=== PATIENT | male | born 1970 | race Caucasian/White ===

== ENCOUNTER 2025-03-12 12:15 | Outpatient (CLI) | payer OTHER, SELFPAY ==
--- NOTE | ~2025-03-12 | PE_ITS ---
EXAMINATION: PET_PETPSMAST_PT DATE: 03/12/2025 15:32 INDICATION: Gastric cancer TECHNIQUE: 5.069 mCi of Illucix Ga-68([id number]) was administered i.v. Low dose computed ethan graphy (CT) images were acquired from the base of the brain to the base of the brain to the proximal thighs for attenuation correction and anatomic localization. Positron emission tomography (PET) image s were acquired in the same distribution beginning 88 minutes after injection. Images including fused PET/CT images were reconstructed in axial, coronal, and sagittal planes. Automated exposure control technique was employed. The dose-length product was 1242.86mGy-cm. COMPARISON: None FINDINGS: Head/neck: Typical pattern of symmetric physiologic increased activity in the lacrimal, parotid and submandibula r glands as well as along the mucosa of the nasal and oral cavities. No pathologically enlarged cervi akira lymphadenopathy or suspicious foci of increased uptake in the visualized head or neck. Chest: Mild emphysema in the upper lungs. Calcified right middle lobe nodule along with calcified right marina r lymph nodes consistent with old granulomatous disease. No concerning pulmonary nodules, pneumonia, pulmonary edema or pleural effusion. Heart size is normal. Small amount of atherosclerotic coronary a rtery calcific location. No pericardial effusion. Thoracic aorta is normal in caliber. No pathologica lly enlarged or PSMA avid thoracic lymphadenopathy. Abdomen/pelvis/proximal thighs: Physiologic renal accumulation and excretion of activity in the kidneys, bladder and along portions o f ureters. Mild prostatomegaly measuring 4.2 x 3.9 cm. There is a small focus of increased uptake sli ghtly to the right of midline in the central prostate suspicious for primary prostate cancer. Assessm ent of the degree of uptake is limited by the adjacent intense excreted activity in the bladder. Norm al degree and slightly heterogenous pattern of increased uptake throughout the liver and spleen witho ut radiologic correlate or dominant PSMA avid lesion.. There are a few small splenic calcifications c onsistent with old granulomatous disease. The gallbladder, pancreas and bilateral adrenal glands are normal. Moderate uptake scattered throughout the bowels with typical duodenal and proximal jejunal pr edominance and without radiologic correlate, also likely physiologic. Mild sigmoid diverticulosis wit hout adjacent from trace stranding to suggest diverticulitis. No other abnormal foci of increased upt clemencia or pathologically enlarged lymphadenopathy in the abdomen, pelvis or proximal thighs. Musculoskeletal: No suspicious lytic, blastic or abnormally PSMA avid bone lesions. IMPRESSION: 1. Small focus of uptake slightly to the right of midline in the central prostate likely representing the site of reported primary prostate cancer. No lesion suspicious for metastatic disease. Reviewed, dictated and finalized at location B. IMPRESSION: 1. Small focus of uptake slightly to the right of midline in the central prosta te likely representing the site of reported primary prostate cancer. No lesion suspicious for metastatic disease.
--- OUTSIDE RECORDS SUMMARY | 2025-03-12 13:48 | XMS_ITS | Clinical Summary ---
Author Organization [facility] Address [address] [place] [address] Care Team Providers Care Valet Runner Name Role Phone Lucy Trinidad MD Primary Care Provider Allergies No known active allergies Medications metFORMIN (GLUCOPHAGE) 500 MG tablet Take 1 tablet (500 mg total) by mouth daily with breakfast. 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 1 kit 06/09/2023 Active Insulin Glargine, 1 Unit Dial, 300 UNIT/ML Solution Pen-injector Inject 10 Units into the skin every evening. 1.5 mL 6 06/09/2023 Active atorvastatin (LIPITOR) 40 MG tablet Take 1 tablet (40 mg total) by mouth nightly at bedtime. 30 tablet 3 06/09/2023 Active Active Problems Problem Noted Date Diagnosed Date Diabetes ([facility]) 06/08/2023 Social History Tobacco Use Types Packs/Day Years Used Date Smoking Tobacco: Every Day Cigarettes 0.5 35 Smokeless Tobacco: Current Chew Tobacco Cessation:Ready to Q uit: No; Counseling Given: Yes Alcohol Use Standard Drinks/Week Comments Never 0 (1 standard drink = 0.6 oz pur e alcohol) Humiliation, Afraid, Rape, and Kick questionnair e Answer Date Recorded Within the last year, have y ou been afraid of your partner or ex-partner? No 06/08/2023 Within the last year, have y ou been humiliated or emotionally abused in other ways by your partner or ex-partner? No Within the last year, have y ou been kicked, hit, slapped, or otherwise physically hurt by your partner or ex-partner? No 06/08/2023 Within the last year, have y ou been raped or forced to have any kind of sexual activity by your partner or ex-partner? No 06/08/2023 Social Connection and Isolat ion Panel [NHANES] Answer Date Recorded In a typical week, how many times do you talk on the phone with family, friends, or neighbors? More than three times a week 06/08/2023 How often do you get togethe r with friends or relatives? Twice a week 06/08/2023 How often do you attend chur or quaker services? 1 to 4 times per year 06/08/2023 Do you belong to any clubs o r organizations such as holiness groups, unions, fraternal or athletic groups, or school groups? No 06/08/2023 How often do you attend meet ings of the clubs or organizations you belong to? Never 06/08/2023 Are you , , di vorced, , never , or living with a partner? 06/08/2023 AUDIT-C Answer Date Recorded Q1: How often do you have a drink containing alcohol? Never 06/08/2023 Q2: How many drinks containi ng alcohol do you have on a typical day when you are drinking? Patient does not drink Q3: How often do you have si x or more drinks on one occasion? Never 06/08/2023 Overall Financial Resource Strain (CARDIA) Answe r Date Recorded How hard is it for you to pa y for the very basics like food, housing, medical care, and heating? Not very hard 06/08/2023 [facility] Occupat ional Health - Occupational Stress Questionnaire Answer Date Recorded Do you feel stress - tense, restless, nervous, or anxious, or unable to sleep at night because your mind is troubled all the time - these days? Not at all 06/08/2023 Hunger Vital Sign Answer Date Recorded Within the past 12 months, y ou worried that your food would run out before you got the money to buy more. Never true 06/08/20 Within the past 12 months, t he food you bought just didn't last and you didn't have money to get more. Never true 06/08/2023 PRAPARE - Transportation Answer Date Re corded In the past 12 months, has l ack of transportation kept you from medical appointments or from getting medications? No 05/26 In the past 12 months, has l ack of transportation kept you from meetings, work, or from getting things needed for daily living? No 06/08/2023 Housing Stability Vital Sign Answer Valerio e Recorded In the last 12 months, was t here a time when you were not able to pay the mortgage or rent on time? No 06/08/2023 In the last 12 months, how many places have you lived? 1 06/08/2023 In the last 12 months, was t here a time when you did not have a steady place to sleep or slept in a usp (including now)? No 06/08/2023 Education Answer Date Recorded What is the highest level of school you have completed or the highest degree you have received? Associate degree: occupational, technical, or vocational program 06/08/2023 Sex and Gender Information Value Date Recorded Sex Assigned at Not on file Legal Sex Male 8:07 AM CDT Gender Identity Not on file Sexual Orientation Not on file Last Filed Vital Signs Vital Sign Reading Time Taken Comments Blood Pressure 121/78 11/28/2023 10:01 AM FIELD HUMAN RESOURCES MANAGER Pulse 73 11/28/2023 10:01 AM FIELD HUMAN RESOURCES MANAGER Temperature 36 C (96.8 F) 11/28/2023 10:01 AM FIELD HUMAN RESOURCES MANAGER Respiratory Rate 20 11/28/2023 10:01 AM FIELD HUMAN RESOURCES MANAGER Oxygen Saturation 98% 11/28/2023 10:01 AM FIELD HUMAN RESOURCES MANAGER Inhaled Oxygen Concentration - - Weight 93.9 kg (207 lb) 11/28/2023 10:01 AM FIELD HUMAN RESOURCES MANAGER Height 175.3 cm (5' 9) 11/28/2023 10:01 AM FIELD HUMAN RESOURCES MANAGER Body Mass Index 30.57 11/28/2023 10:01 AM FIELD HUMAN RESOURCES MANAGER Plan of Treatment Health Maintenance Due Date Last Done Comments Colorectal Cancer Screening Colonoscopy (10 Years) 1971 Kidney Health Evaluation 1971 Lipid Panel 1971 Annual Physical 1974 Diabetes: Retinopathy Eye Exam 1989 Hepatitis C 1989 Hepatitis B Vaccines (1 of 3 - 19+ 3-dose series) 1990 Pneumococcal Vaccine: 50+ Years (1 of 2 - PCV) 1990 Zoster Vaccines (1 of 2) 2021 COVID-19 Vaccine (3 - 2023-2 5 season) 2024 05/22/2021, 05/01/2021 PHQ-2 (Physician [place]) 09/25/2024 Hemoglobin A1C 05/31/2025 11/28/2024, 06/09/2023 DTaP, Tdap and Td Vaccines ( 3 - Td or Tdap) 11/25/2025 11/26/2015, 04/19/2000, 05/17/1990 Meningococcal B Vaccine Aged Out No l onger eligible based on patient's age to complete this topic Meningococcal Vaccine Aged Out No branden [place] eligible based on patient's age to complete this topic RSV Immunizations Under 20 Months Aged Out No longer eligible b ased on patient's age to complete this topic Procedures Procedure Name Priority Date/Time Associated Diagnosis Comments HEMOGLOBIN, GLYCOSYLATED Routine 11/28/2024 2:59 PM FIELD HUMAN RESOURCES MANAGER from Last 3 Months or Most Recently Relevant to Health Maintenance Results * (ABNORMAL) HEMOGLOBIN, GLYCOSYLATED (11/28/2024 2:59 PM FIELD HUMAN RESOURCES MANAGER) HGB A1C 5.9(H) <5.7 % 11/28/2024 4:22 PM FIELD HUMAN RESOURCES MANAGER [facility] Comment: INCREASED RISK OF DIABETES <5.7% NON-DIABETES 5.7-6.4% INCREASED RISK FOR FUTURE DIABETES > OR = 6.5 CONSISTENT WITH DIABETES STANDARDS OF MEDICAL CARE IN DIABETES-2010 DIABETES CARE, 33(SUPP 1): S1-S61,2010 ESTIMATED AVG GLUCOSE 123 mg/dL 11/28/2024 4:22 PM FIELD HUMAN RESOURCES MANAGER [facility] 11/28/2024 2:59 PM FIELD HUMAN RESOURCES MANAGER Jai Moeller MD LABORATORY Final Result [facility] [address] [place] [address], from Last 3 Months or Most Recently Relevant to Health Maintenance Insurance [employer] Care Teams Valet Runner Relationship Specialty Start Date End Date Lucy Trinidad MD [address] [place] [address] PCP - General FAMILY PRACTICE 03/13/19
--- OUTSIDE RECORDS SUMMARY | 2025-03-12 13:48 | XMS_ITS | Patient Health Record ---
Author Organization [facility] Address [address] [address] Care Team Providers Care Associate Director Regulatory Affairs Name Role Phone Ruben Cervantes Primary Care Provider Ruben Cervantes Unavailable Unavailable Reason For Referral No Information Plan Of Treatment No Information
--- OUTSIDE RECORDS SUMMARY | 2025-03-12 13:48 | XMS_ITS ---
Author Organization [facility] Address [address] [address] Care Team Providers Care Nursing Home Social Worker Name Role Phone Ruben Cervantes Primary Care Provider Ruben Cervantes Unavailable Unavailable Encounters Encounter Location Date Provider Diagnosis [place] [address] [place] [address] 06/28/2024 Ruben Cervantes Plan Of Treatment No Information Progress Notes * LAURYN SORENSONNATAOB:1970 (54 yo M)Acc No.[id number]:06/28/2024 Patient: IRASEMA MCKEON Provider: Halima Cervantes MD :1970 A ge:53 Y S ex:Male Date:06/28/2024 Address:[address] [place], [place] [id number] Subjective: * Chief Complaints: * Objective: * Vitals: Assessment: Plan: * Treatment: * Billing Information: * Visit Code: * Procedure Codes: * Electronic signature of Jasbir Cervantes MD on 03/12/2025 at 01:48 PM CDT Sign off status: Pending * Provider: Halima Cervantes MD Date: Generated for Tavo merrill/Selwyn/Kelly on: 0 03/12/2025 01:48 PM CDT
== END 2025-03-12 12:16 | disposition home or self-care (01) ==
PROVIDERS: PCP Nurse Practitioner Family; Visit Provider Urology
DX: C61 Malignant neoplasm of prostate (principal)
CPT/HCPCS: 78815; A9596

== ENCOUNTER 2025-04-17 11:30 | Outpatient (CLI) | payer OTHER, SELFPAY ==
--- OUTSIDE RECORDS SUMMARY | 2025-04-17 11:43 | XMS_ITS | Patient Health Record ---
Author Organization [facility] In[facility] Address [address] [place] [address] Care Team Providers Care Embedded Software Manager Name Role Phone Destiny Mosqueda Primary Care Provider [phone] Jesús Cardenas Unavailable [phone] Dr. David Brown Unavailable [phone] Migration, Provider Unavailable Unavailable Allergies No Known Allergies Results Component Value Reference Range Flag Notes CBC w/ Diff Reviewed date:07/19/2024 12:00:00 AM Interpretation: Performing Lab: Notes/Report: Baso Absolute 0.1 x10*3/mcL Basophil Auto 0.7 % Eos Absolute 0.3 x10*3/mcL Eosinophil Auto 3.2 % Hct 41.1 % Hgb 14.3 g/dL Lymph Absolute 3.1 x10*3/mcL Lymph Auto 35.1 % MCH 30.9 pg MCHC 34.9 g/dL MCV 88.5 fL [place] Absolute 0.6 x10*3/mcL [place] Auto 6.6 % MPV 7.3 fL Neutro Absolute 4.8 x10*3/mcL Neutro Auto 54.4 % Platelets 354 K/mcL RBC 4.65 x10*6/mcL RDW 13.2 % WBC 8.8 K/mcL Comprehensive Metabolic Pane l Reviewed date:07/19/2024 12:00:00 AM Interpretation: Performing Lab: Notes/Report: Albumin Lvl 4.6 g/dL Albumin/Globulin Ratio 2.1 Alk Phos 61 unit/L ALT 20 unit/L ANION GAP 7.5 mmol/L AST 18 unit/L Bilirubin Total 0.4 mg/dL BUN 15 mg/dL Calcium Lvl 9.7 mg/dL Chloride Lvl 106 mmol/L CO2 26 mmol/L Creatinine Lvl 0.87 mg/dL eGFR CKD-EPI >90 mL/min/1.73 m2 Glucose Lvl 90 mg/dL Potassium Lvl 4.3 mmol/L Protein Total 6.8 g/dL Sodium Lvl 139 mmol/L Hemoglobin A1c {Glycosylated } Reviewed date:07/19/2024 12:00:00 AM Interpretation: Performing Lab: Notes/Report: eAvg Glucose 117 mg/dL Hemoglobin A1c 5.7 % Lipid Panel {Chol, Trig, HDL , LDL} Reviewed date:07/19/2024 12:00:00 AM Interpretation: Performing Lab: Notes/Report: Chol/HDL 5 Cholesterol Total 149 mg/dL Coronary Risk 19 % HDL 29 mg/dL LDL 49 mg/dL NON HDL CHOLESTEROL 120 mg/dL Triglycerides 356 mg/dL Thyroid Stimulating Hormone Reviewed date:07/19/2024 12:00:00 AM Interpretation: Performing Lab: Notes/Report: TSH 0.92 mcIU/mL Uric Acid Reviewed date:07/19/2024 12:00:00 AM Interpretation: Performing Lab: Notes/Report: Uric Acid 7.3 mg/dL PSA Annual Screening Reviewed date:01/29/2025 09:55:09 PM Interpretation: Performing Lab: Notes/Report: Test Performed by: [place] [address] Dental Assistant Instructor: Vini Falcon DO PSA Total 6.14 0.00-4.00 ng/mL H Thyroid Stimulating Hormone Reviewed date:01/29/2025 09:55:09 PM Interpretation: Performing Lab: Notes/Report: Test Performed by: [place] [address] Dental Assistant Instructor: Vini Falcon DO TSH 0.82 0.45-5.33 mcIU/mL Magnesium Reviewed date:01/29/2025 09:55:09 PM Interpretation: Performing Lab: Notes/Report: Test Performed by: [place] [address] Dental Assistant Instructor: Vini Falcon DO Magnesium Lvl 1.9 1.6-2.4 mg/dL Lipid Panel {Chol, Trig, HDL , LDL} Reviewed date:01/29/2025 09:55:09 PM Interpretation: Performing Lab: Notes/Report: Test Performed by: [address] [place] [address] Dental Assistant Instructor: Vini Falcon DO Cholesterol Total 125 <=199 mg/dL Triglycerides 429 0-149 mg/dL H Triglyceride Reference Ranges: <150 mg/dL Normal 150 - 199 mg/dL Borderline High 200 - 499 mg/dL High >=500 mg/dL Very High LDL N/A TRIG>400 <=100 mg/dL LDL Optimal: <100 Near or above optimal: 100-129 Borderline high: 130-159 High: 160-189 Very high: >=190 Coronary heart disease risk factors should be considered when determining LDL goals. Please refer to ATPIII guidelines for further information. If LDL is not calculated, please call the lab to add on the direct LDL methodology, if desired. HDL 24 23-92 mg/dL Non HDL Cholesterol 101 <=130 mg/dL Chol/HDL 5 0-5 Comprehensive Metabolic Pane l Reviewed date:01/29/2025 09:55:09 PM Interpretation: Performing Lab: Notes/Report: Test Performed by: [place] [address] Dental Assistant Instructor: Vini Falcon DO Glucose Lvl 94 74-109 mg/dL ADA risk stratification for diabetes <100 mg/dL = Normal 100-125 mg/dL = Increased risk for future diabetes >=126 mg/dL = Diabetes, if on more than one testing occasion BUN 13 7-25 mg/dL Creatinine Lvl 0.93 0.70-1.30 mg/dL eGFR CKD-EPI >90 >=90 mL/min/1.73 m2 The CKD-EPI equation is validated in individuals 18 years of age and older. It is less accurate in patients with extremes of muscle mass, restriction of dietary protein, ingestion of creatine, extra-renal metabolism of creatinine, or treatment with medications that affect renal tubular creatinine secretion. GFR Categories in Chronic Kidney Disease (CKD) GFR GFR (mL/min/1.73 Category: square meters): Interpretation: G1 90 or greater Normal or high* G2 60-89 Mild decrease* G3a 45-59 Mild to moderate decrease G3b 30-44 Moderate to severe decrease G4 15-29 Severe decrease G5 14 or less Kidney failure *In the absence of evidence of kidney damage, neither GFR category G1 nor G2 fulfill the criteria for CKD (Kidney Int Suppl 2013;3:1-150) Calcium Lvl 8.9 8.6-10.3 mg/dL Sodium Lvl 138 136-145 mmol/L Potassium Lvl 4.1 3.5-5.1 mmol/L Chloride Lvl 106 98-107 mmol/L CO2 25 21-31 mmol/L Anion Gap 7.0 <=16.0 mmol/L Alk Phos 66 34-104 unit/L Bilirubin Total 0.3 0.3-1.0 mg/dL Albumin Lvl 4.4 3.5-5.2 g/dL Protein Total 6.6 6.4-8.9 g/dL Albumin/Globulin Ratio 2.0 1.1-2.5 ALT 35 7-52 unit/L AST 24 13-39 unit/L CBC w Auto Diff Reviewed date:01/29/2025 09:55:09 PM Interpretation: Performing Lab: Notes/Report: Test Performed by: [place] [address] Dental Assistant Instructor: Vini Falcon DO WBC 5.1 4.0-11.7 K/mcL RBC 4.64 4.28-5.56 x10*6/mcL Hgb 14.3 13.0-17.0 g/dL Hct 40.8 38.1-48.9 % MCV 88.0 83.4-98.1 fL MCH 30.9 27.0-34.2 pg MCHC 35.1 31.8-35.3 g/dL RDW 13.3 12.0-16.4 % Platelets 300 149-393 K/mcL MPV 7.0 7.0-11.0 fL Neutro Auto 53.0 45.3-79.0 % Lymph Auto 31.3 11.8-45.9 % [place] Auto 11.1 4.4-12.0 % Eosinophil Auto 3.5 0.0-6.3 % Basophil Auto 1.1 0.2-1.6 % Neutro Absolute 2.7 2.4-8.4 x10*3/mcL Lymph Absolute 1.6 0.8-3.7 x10*3/mcL [place] Absolute 0.6 0.3-1.1 x10*3/mcL Eos Absolute 0.2 0.0-0.5 x10*3/mcL Baso Absolute 0.1 0.0-0.1 x10*3/mcL T4 Free Reviewed date:01/29/2025 09:55:09 PM Interpretation: Performing Lab: Notes/Report: Test Performed by: [place] [address] Dental Assistant Instructor: Vini Falcon DO T4 Free 0.75 0.60-1.70 ng/dL Hemoglobin A1c {Glycosylated } Reviewed date:01/29/2025 09:55:09 PM Interpretation: Performing Lab: Notes/Report: Test Performed by: [place] [address] Dental Assistant Instructor: Vini Falcon DO Hemoglobin A1c 5.9 <=6.4 % Hemoglobin A1C < 5.7% = Normal 5.7-6.4% = Increased risk for future diabetes >=6.5% = Diabetes eAvg Glucose 123 <=117 mg/dL H eAG Reference Range <117 mg/dL = Normal 117-137 mg/dL = Increased Risk For Future Diabetes >137 mg/dL = Diabetes Urine Culture Reviewed date:04/09/2025 07:58:52 PM Interpretation: Performing Lab: Notes/Report: Test Performed by: [place] [id number] Dental Assistant Instructor: DO Kaitlin Fraga Urine See Below Final No growth at 2 days. Urinalysis Reviewed date:04/07/2025 08:34:27 AM Interpretation:Normal Performing Lab: Notes/Report: Normal Specific [place] 1.015 pH 6.0 Glucose neg Urine Protein neg Occult Blood neg Bilirubin neg Urobilinogen,Semi-Qn normal Nitrite, Urine neg Ketones neg Leucocyte Esterase neg Reason For Referral Reason new onset elevated P SA Diagnosis 1 Elevated PSA (R97.20 ) Referral Organization [facility] Referring Provider First Name Destiny Referring Provider Last Name Panda Referring Provider Speciality Nurse Prac titioner Referred Provider Ellis Bernard Referred Provider Specialty Urology General Notes Caroline Pickard 0 12/04/2024 02:50:18 PM CDT >Referral faxed to Dr. Bernard [phone] Kaitlin 12/17/2024 02:21:31 PM CDT >please check on status of referral, Caroline Pickard 02/27/2025 04:32:17 PM CDT >Pt seen on 01/06/25. Consult note in chart Clinical Notes Omaira Rhoades 12/03 03:40:42 PM CDT >pt had labs done - thought he had a med check this month but it is in January, found that PSA is elevated. Seeking urology for f/u. Referral Priority Urgent Medications Medication SIG (Take, Route, Frequency, Duration) Notes Start Date End Date Status Fenofibrate 54 MG Tablet 1 tablet with f ood Orally Once a day; Duration: 30 days 02/04/2025 Active Atorvastatin Calcium 20 MG Tablet Oral; Duration: 90 Days Acti ve Lancets EACH MISCELLANEOUS; Durat ion: 0 06/10/2023 Active Sildenafil Citrate 50 MG Tablet 1-2 Oral as directed; Duration: 0 04/16/2024 Active Vitamin D3 25 MCG (1000 UT) Capsule 1 capsule Orally Once a day Active Doxycycline Hyclate 100 MG Capsule 1 capsule Orally twice a day; Duration: 10 days 04/07/2025 04/17/2025 Active FreeStyle Lite Test - Strip In Vitro; Duration: 0 06/10/2023 Active Lisinopril 20 MG Tablet Oral; Duration: 90 Days Active Ozempic (1 MG/DOSE) 4 MG/3ML Solution Pen-injector 1 mg Subcutaneous once a week; Duration: 28 days 07/19/2024 Active Immunizations Vaccine Route Administration Date Status Comme nts Influenza, quadrivalent (IIV4), split virus, 6-35 months dosage IM Intramuscular 08/29/2022 Administered ,sourcename : N ew immunization record ,immstatus : Complete [employer] Covid-19 Vaccine 1st dose Unknown 05/22/2021 [facility] ,sourcename : New immunization record Source VFC Code: : Tdap Unknown 11/26/2015 Administered ,sourcename : Historical information -from other provider Source VFC Code: : Social History Social History Drug/Alcohol: Social Info Question Answer Notes AUDIT-C (Standard) Did you have a drink containing alcohol in the past year? Yes How often did you have a drink containing alcohol in the past year? Monthly or less (1 point) How many drinks did you have on a typical day when you were drinking in the past year? 1 or 2 drinks (0 point) How often did you have six or more drinks on one occasion in the past year? Never (0 point) Points 1 Interpretation Negative Section Notes: Pt reports social drinking o nly Problems Problem Type SNOMED Code ICD Code Onset Dates Problem Status W/U Status Risk Notes Problem History of malignant neoplasm of prostate (902073968) History of prostate cancer (Z85.46) Active confirmed Problem Hyperglycemia due to type 2 diabetes mellitus (118451335758217) Type 2 diabetes mellitus with hyperglycemia (E11.65) 06/13/20 Active confirmed Problem Mixed hyperlipidemia (314404477) Mixed hyperlipidemia (E78.2) 06/13/20 Active confirmed Problem Body mass index 35.00 to 39.99 (862849098503867) Body mass index (BMI) 36.0-36.9, adult (Z68.36) 06/13/20 Active confirmed Problem Solitary pulmonary nodule (037894523) Solitary pulmonary nodule (R91.1) 03/17/20 21 Active confirmed mid right lung Problem Erectile dysfunction (disorder) (662047424) Male erectile dysfunction, unspecified (N52.9) 04/16/20 24 Active confirmed Problem 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) Chondrocostal junction syndrome [Tietze] (M94.0) 02/07/20 19 Active confirmed Problem Pain in thoracic spine (577329893) Pain in thoracic spine (M54.6) 08/01/20 24 Active confirmed Problem Gastro-esophageal reflux disease without esophagitis (356947180) Gastro-esophageal reflux disease without esophagitis (K21.9) 04/16/20 24 Active confirmed Problem Essential hypertension (58693106) Essential (primary) hypertension (I10) 06/13/20 23 Active confirmed Vital Signs Heart Rate 62 /min 04/07/2025 Temperature 97.3 degrees Fahrenheit 04/07/2025 Respiratory Rate 18 /min 02/04/2025 Height-cm 172.72 cm 04/07/2025 Blood pressure diastolic 78 mm Hg 04/07/2025 Oximetry 98 % 04/07/2025 Weight-kg 98.88 kg 04/07/2025 Height 68.00 in 04/07/2025 Blood pressure systolic 122 mm Hg 04/07/2025 Weight 218.0 lbs 04/07/2025 BMI 33.14 kg/m2 04/07/2025 Encounters Encounter Location Date Provider Diagnosis [address] [address] 08/01/2024 Destiny Panda Male erectile dysfunction, unspecified N52.9 ; Gastro-esophageal reflux disease without esophagitis K21.9 ; Essential (primary) hypertension I10 ; Pain in thoracic spine M54.6 ; Hyperlipidemia, unspecified E78.5 and Type 2 diabetes mellitus with hyperglycemia E11.[address] [address] 01/16/2025 Jesús Theresa Insect bite (nonvenomous) of lower back and pelvis, initial encounter S30.860A and Bitten or stung by nonvenomous insect and other nonvenomous arthropods, initial encounter W57.XXXA [address] [address] 02/04/2025 Destiny Mosqueda Type 2 diabetes mellitus with hyperglycemia E11.65 ; Elevated PSA R97.20 ; Mixed hyperlipidemia E78.2 ; Gastro-esophageal reflux disease without esophagitis K21.9 ; Essential (primary) hypertension I10 ; Male erectile dysfunction, unspecified N52.9 and Tobacco use Z72.[address] [address] 04/07/2025 Dr. David Brown Dysuria R30.0 ; Acut e low back pain without sciatica, unspecified back pain laterality M54.50 ; History of prostate cancer Z85.46 and Acute non-recurrent sinusitis, unspecified location J01.[address] [address] 08/24/2024 Provider Migration [address] [address] 08/25/2024 Provider Migration [address] [address] 12/01/2024 Destiny Mosqueda [address] [address] 01/07/2025 Destiny Mosqueda Type 2 diabetes mellitus with hyperglycemia E11.[address] [address] 01/29/2025 Destiny Mosqueda Mixed hyperlipidemia E78.2 ; Type 2 diabetes mellitus with hyperglycemia E11.65 ; Gastro-esophageal reflux disease without esophagitis K21.9 and Encounter for screening for malignant neoplasm of prostate Z12.5 [facility] [address] [place] [address] 04/09/2025 Destiny Mosqueda Assessments Encounter Date Diagnosis (ICD Code) Assessment Notes Treatment Notes Treatment Clinical Notes Section Notes 01/07/2025 Type 2 diabetes mellitus with hyperglycemia (ICD-10 - E11.65) 04/07/2025 Dysuria (ICD-10 - R30.0) 01/29/2025 Mixed hyperlipidemia (ICD-10 - E78.2) 01/16/2025 Insect bite (nonvenomous) of lower back and pelvis, initial encounter (ICD-10 - S30.860A) - Tick bite attached for unknown time removed about a week ago. Skin erythema is more consistent with inflammatory reaction to bite than erythema migrans.- Prescribe doxycycline for 10 days, 20 capsules, to be taken twice a day with food. Treating due to perisistent rash and unkown period of attachment, no longer within 72 hour removal window to treat with single dose doxy. Recommend using hydrocortisone, topical Benadryl, or calamine lotion for itch relief.- Risks and side effects: Increased sensitivity to the sun; advised to wear sunscreen, long sleeves, and a hat when outdoors.- Call or return for development of fevers, joint pains, or headaches. 01/16/2025 Bitten or stung by nonvenomous insect and other nonvenomous arthropods, initial encounter (ICD-10 - W57.XXXA) 04/07/2025 Acute low back pain without sciatica, unspecified back pain laterality (ICD-10 - M54.50) 01/29/2025 Type 2 diabetes mellitus with hyperglycemia (ICD-10 - E11.65) 02/04/2025 Elevated PSA (ICD-10 - R97.20) - Two small tumors found during biopsy; pathology results pending. MRI indicated RADS 5, suggesting high suspicion for prostate cancer. No MRI findings in bladder, seminal vesicles, or lymph nodes.-Had biopsy yesterday. 18 samples taken- Await biopsy results expected on Monday. Discuss potential treatment options based on results, including radiation or surgical removal if necessary. -He is having urinary sx's today of pain, blood, and feeling like need to go and then nothing is coming out. -Discussed concerns for urinary retention. He feels like he is emptying. Advised to go to ER if concerns for retention. 08/01/2024 Type 2 diabetes mellitus with hyperglycemia (ICD-10 - E11.65) 08/01/2024 Hyperlipidemia, unspecified (ICD-10 - E78.5) 08/01/2024 Essential (primary) hypertension (ICD-10 - I10) 08/01/2024 Gastro-esophageal reflux disease without esophagitis (ICD-10 - K21.9) 08/01/2024 Pain in thoracic spine (ICD-10 - M54.6) 08/01/2024 Male erectile dysfunction, unspecified (ICD-10 - N52.9) 02/04/2025 Type 2 diabetes mellitus with hyperglycemia (ICD-10 - E11.65) A1C went from 5.5 to 5.9, continue Ozempic 1mg weekly. He is no longer taking metformin 02/04/2025 Mixed hyperlipidemia (ICD-10 - E78.2) Recent trigs have gone up to 429. Rest of lipids are good, but trigs have remain elevated. Will start fenofibrate 54mg and continue atorvastatin 40mg daily 01/29/2025 Gastro-esophageal reflux disease without esophagitis (ICD-10 - K21.9) 04/07/2025 History of prostate cancer (ICD-10 - Z85.46) 02/04/2025 Gastro-esophageal reflux disease without esophagitis (ICD-10 - K21.9) Uses prevacid PRN, works well 04/07/2025 Acute non-recurrent sinusitis, unspecified location (ICD-10 - J01.90) 01/29/2025 Encounter for screening for malignant neoplasm of prostate (ICD-10 - Z12.5) 02/04/2025 Essential (primary) hypertension (ICD-10 - I10) -BP is controlled. Continue lisinopril 20mg daily 02/04/2025 Male erectile dysfunction, unspecified (ICD-10 - N52.9) -Tried sildenafil with minimal effects. Will see what happens after prostate results 02/04/2025 Tobacco use (ICD-10 - Z72.0) -Recommend he quit smoking. He will think about it. No pharmaceutical intervention started today. Plan Of Treatment Pending Test Test Name Order Date X ray : Pelvis 04/07/2025 Insurance Providers Payer Name Payer Address Payer Phone Subscriber Number Group Number Insured Name Patient Relationship to Insured Coverage Start Date Coverage End Date [employer] [address] [place] [address] [id number] Brett Garibay Self - patient is the insured 3 Medical (General) History Medical History History ICD Code Type 2 diabetes mellitus without complic ations E11.9 Hyperlipidemia, unspecified E78.5 Unspecified nonsuppurative otitis media, right ear H65.91 Pain in left knee M25.562 Encounter for screening for malignant ne oplasm of colon Z12.11 Encounter for screening for malignant ne oplasm of prostate Z12.5 Encounter for immunization Z23 Contusion of left knee, initial encounte r S80.02XA Body mass index (BMI) 36.0-36.9, adult Z 68.36 Solitary pulmonary nodule R91.1 Male erectile dysfunction, unspecified N 52.9 Chondrocostal junction syndrome [Tietze] M94.0 Pain in thoracic spine M54.6 Gastro-esophageal reflux disease without esophagitis K21.9 Essential (primary) hypertension I10 Mixed hyperlipidemia E78.2 Type 2 diabetes mellitus with hyperglyce yi E11.65 Male erectile disorder F52.21 Right upper quadrant pain R10.11 Other fatigue R53.83 Surgical History Surgery Date(Month/Year) Appendectomy 02/08/2018 prostate biopsy 12/04/24 colonoscopy 2023
--- OUTSIDE RECORDS SUMMARY | 2025-04-17 11:43 | XMS_ITS ---
Author Organization [facility] Address [address] [address] Care Team Providers Care Felt Checker Name Role Phone Ruben Cervantes Primary Care Provider Ruben Cervantes Unavailable Unavailable Encounters Encounter Location Date Provider Diagnosis [place] [address] [place] [address] 06/28/2024 Ruben Cervantes Plan Of Treatment No Information Progress Notes * LAURYN SORENSONNATAOB:1970 (54 yo M)Acc No.[id number]:06/28/2024 Patient: IRASEMA MCKEON Provider: Halima Cervantes MD :1970 A ge:53 Y S ex:Male Date:06/28/2024 Address:[address] [place], [place] [id number] Subjective: * Chief Complaints: * Objective: * Vitals: Assessment: Plan: * Treatment: * Billing Information: * Visit Code: * Procedure Codes: * Electronic signature of Jasbir Cervantes MD on 04/17/2025 at 11:42 AM CDT Sign off status: Pending * Provider: Halima Cervantes MD Date: Generated for Tavo merrill/Selwyn/Anatitting on: 04/17/2025 11:42 AM CDT
--- OUTSIDE RECORDS SUMMARY | 2025-04-17 11:43 | XMS_ITS | Patient Health Record ---
Author Organization [facility] Address [address] [address] Care Team Providers Care Corn Detasseler Name Role Phone Ruben Cervantes Primary Care Provider [phone] Ruben Cervantes Unavailable Unavailable Reason For Referral No Information Plan Of Treatment No Information
--- OUTSIDE RECORDS SUMMARY | 2025-04-17 11:43 | XMS_ITS | Clinical Summary ---
Author Organization [facility] Address Formerly [facility] [place] [address] Care Team Providers Care Manufacturing Controls Engineer Name Role Phone Lucy Trinidad MD Primary Care Provider Allergies No known active allergies Medications metFORMIN (GLUCOPHAGE) 500 MG tablet Take 1 tablet (500 mg total) by mouth daily with breakfast. 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 ([facility]) 1 Units by Does not apply route [...] Problems Problem Noted Date Diagnosed Date Diabetes ([facility] HHS/HCC) 06/08/2023 Encounters Date Type Department Care Team Description 04/07/2025 9:00 AM CDT - 04/07/2025 11:59 PM CDT Hospital Encounter [facility] Diagnostic Imaging [address] [place] [address] David Brown MD Discharge Disposition: Home or Self Care (Routine Discharge) 04/07/2025 Travel from Last 3 Months Social History Tobacco Use Types Packs/Day Years [...] week 06/08/2023 How often do you attend [facility] or gnosticist services? 1 to 4 times per year 06/08/2023 Do you belong to any clubs o r organizations such as sikh groups, unions, fraternal or athletic groups, or [...] care, and heating? Not very hard 06/08/2023 [facility] - Occupational Stress [...] money to buy more. Never true 06/08/20 23 Within the past 12 months, t he [...] place to sleep or slept in a alf (including now)? No 06/08/2023 Education Answer Date [...] Comments Blood Pressure 121/78 11/28/2023 10:01 AM SMELLER Pulse 73 11/28/2023 10:01 AM SMELLER Temperature 36 C (96.8 F) 11/28/2023 10:01 AM SMELLER Respiratory Rate 20 11/28/2023 10:01 AM SMELLER Oxygen Saturation 98% 11/28/2023 10:01 AM SMELLER Inhaled Oxygen Concentration - - Weight 93.9 kg (207 lb) 11/28/2023 10:01 AM SMELLER Height 175.3 cm (5' 9) 11/28/2023 10:01 AM SMELLER Body Mass Index 30.57 11/28/2023 10:01 AM SMELLER Plan of Treatment Health Maintenance Due Date [...] 5 season) 2024 05/22/2021, 05/01/2021 PHQ-2 (Physician Hamel) 09/25/2024 Hemoglobin A1C 05/31/2025 11/28/2024, 06/09/2023 DTaP, [...] Procedure Name Priority Date/Time Associated Diagnosis Comments XR PELVIS 1 OR 2 VIEWS Routine 04/07/2025 9:18 AM CDT Acute midline low back pain without sciatica HEMOGLOBIN, GLYCOSYLATED Routine 11/28/2024 2:59 PM SMELLER from Last 3 Months or Most Recently Relevant to Health Maintenance Results * XR PELVIS 1 OR 2 VIEWS (04/07/2025 9:18 AM CDT) Anatomical Region Laterality Modality Pelvis Computed Tomogra phy 04/07/2025 9:36 AM CDT Impressions 04/07/2025 10:48 AM CDT IMPRESSION: No radiologic evidence of fracture. Minimal bony proliferation lateral aspect dome of each acetabulum. The attending radiologist has reviewed the image(s) and agrees with the content of this report. Ordered By: DAVID BROWN Interpreted By: Jose Guadalupe Farah MD, 04/07/2025 9:36 AM Narrative 04/07/2025 10:48 AM CDT [address] [place] [address] Examination: XR PELVIS 1 OR 2 VIEWS Exam time: 04/07/2025 9:10 AM Clinical history: pt states posterior low back pain that started today. pt denies any surgeries. Comparison: None Technique: One view of the pelvis Findings: No fracture or acute bony abnormality. Minimal bony overgrowth the lateral aspect of the dome of the chest abdomen which may indicate an early mild pincer configuration arthritis. Soon just correlation as to symptoms during femoral abduction. There is no radiologic evidence of fracture in either femur . No soft tissue abnormality. Procedure Note Hitesh Roblero MD - 04/07/[address] [place] [address] Examination: XR PELVIS 1 OR 2 VIEWS Exam time: 04/07/2025 9:10 AM Clinical history: pt states posterior low back pain that started today. ptdenies any surgeries. Comparison: None Technique: One view of the pelvis Findings: No fracture or acute bony abnormality. Minimal bony overgrowththe lateral aspect of the dome of the chest abdomen which may indicate anearly mild pincer configuration arthritis. Soon just correlation as tosymptoms during femoral abduction. There is no radiologic evidence offracture in either femur . No soft tissue abnormality. IMPRESSION: No radiologic evidence of fracture. Minimal bony proliferation lateralaspect dome of each acetabulum. The attending radiologist has reviewed the image(s) and agrees with thecontent of this report. Ordered By: DAVID BROWN Interpreted By: Jose Guadalupe Farah MD, 04/07/2025 9:36 AM us David Brown MD GENERAL IMAGING Final Result * (ABNORMAL) HEMOGLOBIN, GLYCOSYLATED (11/28/2024 2:59 PM SMELLER) HGB A1C 5.9(H) <5.7 % 11/28/2024 4:22 PM SMELLER [facility] Comment: INCREASED RISK OF DIABETES <5.7% NON-DIABETES 5.7-6.4% INCREASED RISK FOR FUTURE DIABETES > OR = 6.5 CONSISTENT WITH DIABETES STANDARDS OF MEDICAL CARE IN DIABETES-2010 DIABETES CARE, 33(SUPP 1): S1-S61,2010 ESTIMATED AVG GLUCOSE 123 mg/dL 11/28/2024 4:22 PM SMELLER [facility] 11/28/2024 2:59 PM SMELLER Jai Moeller MD LABORATORY Final Result [facility] [address] [place] [address], [place] [phone] from Last 3 Months or Most Recently Relevant to Health Maintenance Insurance [facility] [place] Care Teams Manufacturing Controls Engineer Relationship Specialty Start Date End Date Lucy Trinidad MD [address] [place] [address] PCP - General FAMILY PRACTICE 03/13/19
--- NOTE | 2025-04-17 12:49 | ECG_ITS ---
Test Date: 2025-04-17 13:08:03 Measurements Intervals [place] Rate: 67 P: 8 IN: 115 QRS: 42 QRSD: 129 T: 36 QT: 401 QTc: 423 Interpretive Statements SINUS RHYTHM WITH SHORT IN INTERVAL INFERIOR MYOCARDIAL INFARCTION [40+ ms Q WAVE AND/OR ST/T ABNORMALITY IN II/aVF], PROBABLY OLD No previous ECG available for comparison Electronically Signed On 04-18-2025 15:58:06 CDT by Cam Vazquez M.D.
[2025-04-17 13:54] LABS: Hematocrit 40.2 % (42.0-52.0); Hemoglobin 13.8 g/dL (14.0-18.0); Immature Granulocyte Percent A 0.5 % (0-0.5); Lymphocytes Absolute Auto 3.00 K/mm3 (0.9-3.2); Mean Corpuscular HGB Conc 34.3 g/dl (32-36); Mean Corpuscular Hemoglobin 30.3 pg (26-34); Mean Corpuscular Volume 88.4 fl (80-100); Nucleated Red Blood Cells Absolute Auto 0.000 K/mm3 (0.0-0.012); Nucleated Red Blood Cells Perc 0.0 % (0.0-0.2); Platelet Count Result 335 k/mm3 (150-375); Red Blood Count 4.55 M/mm3 (4.6-6.20); White Blood Count 9.3 K/mm3 (4.5-10.0)
[2025-04-17 14:17] LABS: Alanine Aminotransferase 44 U/L (6-50); Albumin Level 4.6 g/dL (3.5-5.1); Alkaline Phosphatase 63 U/L (38-126); Anion Gap 11 mmol/L (4-12); Aspartate Amino Transferase 35 U/L (17-59); Bilirubin,Total 0.7 mg/dL (0.2-1.3); Blood Urea Nitrogen 19 mg/dL (9-20); Calcium 9.7 mg/dL (8.4-10.2); Carbon Dioxide 20 mmol/L (22-30); Chloride 105 mmol/L (98-107); Estimated Glomerular Filt Rate > 60; Glucose 86 mg/dL (65-110); Potassium 4.2 mmol/L (3.4-5.0); Sodium 136 mmol/L (137-145); Total Protein 8.0 g/dL (6.3-8.2)
[2025-04-17 14:24] LABS: INR 1.0; Prothrombin Time 13.2 Seconds (11.1-14.7)
[2025-04-17 14:25] LABS: Partial Thromboplastin Time 40.2 Seconds (22.3-36.8)
== END 2025-04-17 11:31 | disposition home or self-care (01) ==
LOC: ANHSURGERY 11:41
PROVIDERS: PCP Nurse Practitioner Family; Visit Provider Urology
DX: C61 Malignant neoplasm of prostate (principal); I10 Essential (primary) hypertension; Z01.818 Encounter for other preprocedural examination
CPT/HCPCS: 36415; 80053; 85025; 85610; 85730; 86850; 86900; 86901; 87086; 93005

== ENCOUNTER 2025-04-29 00:51 | Day surgery (SDC) | payer OTHER, SELFPAY ==
[2025-04-17 11:54] VITALS: BP 137/78; PULSE 71; RESP 16; TEMP 36.8; O2SAT 99; BMI 33.2
--- NOTE | 2025-04-17 12:15 | PC.NURSE ---
Report to the Outpatient Waiting Room, entrance under the green pavilion located off [facility], at time __6:00AM____ on date __04/29/25____. Planned Procedure Time: ___7:30AM____.? Time changes happen often and if your time is changed the preop area will call you the afternoon before. - You and your visitor will be asked to self-screen and do not enter if you have any COVID symptoms. Please call surgeon if you need to reschedule. - A mask is optional within the hospital at this time. Patients may have clear liquids (water, carbonated beverages, clear teas, apple juice) until 3 hours prior to surgery (4:30AM) with a maximum of 20 ounces. - No food from midnight until time of surgery and no smoking, or chewing tobacco (or any form of nicotine). No chewing gum, candy or mints. Take only the following medications with a SIP of water on the morning of surgery: ____NONE DO NOT STOP ANY OF YOUR OTHER PRESCRIPTION MEDICATIONS PRIOR TO SURGERY EXCEPT THE FOLLOWING Medications to discontinue per physician ____HOLD ASPIRIN AND ALL VITAMINS/SUPPLEMENTS 7 DAYS PRE-OP PER DR MARTINEZ Date to take last dose 04/21/25. Please no make-up, nail upper sorbian, hairspray, perfume, deodorant, or body powder the day of surgery.? No jewelry (including any body piercings) or valuables the day of surgery, leave them at home.? Please take a shower or bath the night before, or the morning of, surgery with an antibacterial soap.? Wear comfortable, loose fitting clothing.? Children are encouraged to wear pajamas. - Jewelry must be removed prior to entering the operating room.? Rings and piercings that are not removed may be cut off. - The hospital will not accept responsibility for valuables.? - Please leave all valuables, including medications, at home the day of surgery. If you are going home after surgery, a licensed truss driver helper must drive you home.? - NO public transportation without another adult if you receive anesthesia. - We recommend that an adult stay with you for 24 hours following discharge. - We also recommend that you do not drive, make important decision, drink alcoholic beverages, or take any drugs that were not prescribed by your health care provider for at least 24 hours after your discharge time. Follow any additional instructions given to you from your surgeon. Telephone instructions given to ___PATIENT & WIFE and asked if any additional questions and then verbalized understanding. Patient advised to call surgeon office or pre surgery nurse liaison [phone] if any additional questions.
--- NOTE | 2025-04-28 15:00 | WPDANESEPPF ---
Anes - Initial Pre Proc Eval Procedure: Operation Date: 04/29/25 07:30 Proposed Procedures p Robotic Assisted Nerve Sparing Prostatectomy, Possible Bilateral Pelvic Lymph Node Dissection - Ellis Bernard MD Date/Time: 04/28/25 15:00 Surgeon: Ellis Bernard MD Pre Op Diagnosis: prostate CA Patient Data Age: 54 Gender: M Height: 1.73 m Weight: 99 kg Last Vital Signs Temp 98.2 F 04/17/25 11:54 Pulse 71 04/17/25 11:54 Resp 16 04/17/25 11:54 BP 137/78 04/17/25 11:54 Pulse Ox 99 04/17/25 11:54 O2 Del Method Room Air 04/17/25 11:54 Allergies Allergy/AdvReac Type Severity Reaction Status Date / Time No Known Allergies Allergy Verified 04/29/25 07:09 Home Medications ?Medication ?Instructions ?Recorded ?Confirmed ?Type aspirin 81 mg tablet,delayed 81 mg PO DAILY 04/17/25 04/29/25 History release (Adult Low Dose Aspirin) atorvastatin 10 mg tablet 10 mg PO QPM 04/17/25 04/29/25 History cholecalciferol (vitamin D3) 50 2,000 unit PO DAILY 04/17/25 04/29/25 History mcg (2,000 unit) capsule lisinopril 20 mg tablet 20 mg PO .Q EVENING 04/17/25 04/29/25 History milk thistle seed extract 140 250 mg PO DAILY 04/17/25 04/29/25 History mg-milk thistle 500 mg capsule multivitamin (Daily Vitamin 1 tablet PO DAILY 04/17/25 04/29/25 History Formula tablet) semaglutide 1 mg/dose (4 mg/3 mL) 1 mg subcut WEEKLY 04/17/25 04/29/25 History subcutaneous pen injector (Ozempic) turmeric 400 mg capsule 1,000 mg PO DAILY 04/17/25 04/29/25 History Patient hx anesthesia problems: none Family hx anesthesia problems: none Results Review: All pre-operative results and documents have been reviewed as part of the pre-operative evaluation. [facility] Social History Social History Smoking packs per day: 2 Smoking cigarettes per day: 40.0 Years smoked: 39 Smoking pack-years: 78.00 Smoking status: Current every day smoker Tobacco type: cigarettes Living arrangements: with family Spiritual care concerns: No Anes - Eval Final PreProcedure Day of Procedure 04/28/25 15:00 Patient weight: obese Heart: regular rate and rhythm Lungs: clear to auscultation Airway: Mallampati scale class II Neurological: alert and oriented Last oral intake: >/= 8 hours ASA classification: III Emergent: no Anesthetic plan: proceed Anesthesia type and monitoring: general ETT and standard monitoring Results Review: All pre-operative results and documents have been reviewed as part of the pre-operative evaluation. Informed Consent: The patient's anesthetic plan and its attendant risks and benefits were discussed with the patient/family/POA. Questions were solicited and answers provided to the satisfaction of the patient/family/POA.
[2025-04-29] VITALS (16 sets, daily range): BP systolic 122–156; BP diastolic 62–101; PULSE 61–89; RESP 10–20; TEMP 36.2–36.9; O2SAT 94–100
--- OUTSIDE RECORDS SUMMARY | 2025-04-29 00:54 | XMS_ITS | Patient Health Record ---
Author Organization [facility] Address [address] [place] [address] Care Team Providers Care Radiator Tester Name Role Phone Destiny Mosqueda Primary Care Provider [phone] Jesús Cardenas Unavailable [phone] Dr. David Brown Unavailable [phone] Migration, Provider Unavailable Unavailable Allergies No Known Allergies Results Component Value Reference Range Flag Notes Urinalysis Reviewed date:04/07/2025 08:34:27 AM Interpretation:Normal Performing Lab: Notes/Report: Normal Specific [place] 1.015 pH 6.0 Glucose neg Urine Protein neg Occult Blood neg Bilirubin neg Urobilinogen,Semi-Qn normal Nitrite, Urine neg Ketones neg Leucocyte Esterase neg Urine Culture Reviewed date:04/09/2025 07:58:52 PM Interpretation: Performing Lab: Notes/Report: Test Performed by: [address] [address] Crusher Plant Operator: Vini Falcon DO C Urine See Below Final No growth at 2 days. Hemoglobin A1c {Glycosylated } Reviewed date:01/29/2025 09:55:09 PM Interpretation: Performing Lab: Notes/Report: Test Performed by: [address] [address] Crusher Plant Operator: Vini Falcon DO Hemoglobin A1c 5.9 <=6.4 % Hemoglobin A1C < 5.7% = Normal 5.7-6.4% = Increased risk for future diabetes >=6.5% = Diabetes eAvg Glucose 123 <=117 mg/dL H eAG Reference Range <117 mg/dL = Normal 117-137 mg/dL = Increased Risk For Future Diabetes >137 mg/dL = Diabetes T4 Free Reviewed date:01/29/2025 09:55:09 PM Interpretation: Performing Lab: Notes/Report: Test Performed by: [place] [address] Crusher Plant Operator: Vini Falcon DO T4 Free 0.75 0.60-1.70 ng/dL CBC w Auto Diff Reviewed date:01/29/2025 09:55:09 PM Interpretation: Performing Lab: Notes/Report: Test Performed by: [place] [address] Crusher Plant Operator: Vini Falcon DO WBC 5.1 4.0-11.7 K/mcL RBC 4.64 4.28-5.56 x10*6/mcL Hgb 14.3 13.0-17.0 g/dL Hct 40.8 38.1-48.9 % MCV 88.0 83.4-98.1 fL MCH 30.9 27.0-34.2 pg MCHC 35.1 31.8-35.3 g/dL RDW 13.3 12.0-16.4 % Platelets 300 149-393 K/mcL MPV 7.0 7.0-11.0 fL Neutro Auto 53.0 45.3-79.0 % Lymph Auto 31.3 11.8-45.9 % [place] Auto 11.1 4.4-12.0 % Eosinophil Auto 3.5 0.0-6.3 % Basophil Auto 1.1 0.2-1.6 % Neutro Absolute 2.7 2.4-8.4 x10*3/mcL Lymph Absolute 1.6 0.8-3.7 x10*3/mcL [place] Absolute 0.6 0.3-1.1 x10*3/mcL Eos Absolute 0.2 0.0-0.5 x10*3/mcL Baso Absolute 0.1 0.0-0.1 x10*3/mcL Comprehensive Metabolic Pane l Reviewed date:01/29/2025 09:55:09 PM Interpretation: Performing Lab: Notes/Report: Test Performed by: [place] [id number] Crusher Plant Operator: Vini Falcon DO Glucose Lvl 94 74-109 [...] 35 7-52 unit/L AST 24 13-39 unit/L Lipid Panel {Chol, Trig, HDL , LDL} Reviewed date:01/29/2025 09:55:09 PM Interpretation: Performing Lab: Notes/Report: Test Performed by: Marycarmen Amezquita [address] [address] Crusher Plant Operator: Vini Falcon DO Cholesterol Total 125 <=199 [...] Cholesterol 101 <=130 mg/dL Chol/HDL 5 0-5 Magnesium Reviewed date:01/29/2025 09:55:09 PM Interpretation: Performing Lab: Notes/Report: Test Performed by: [place] [address] Crusher Plant Operator: Vini Falcon DO Magnesium Lvl 1.9 1.6-2.4 mg/dL Thyroid Stimulating Hormone Reviewed date:01/29/2025 09:55:09 PM Interpretation: Performing Lab: Notes/Report: Test Performed by: [place] [address] Crusher Plant Operator: Vini Falcon DO TSH 0.82 0.45-5.33 mcIU/mL PSA Annual Screening Reviewed date:01/29/2025 09:55:09 PM Interpretation: Performing Lab: Notes/Report: Test Performed by: [place] [address] Crusher Plant Operator: Vini Falcon DO PSA Total 6.14 0.00-4.00 ng/mL H CBC w/ Diff Reviewed date:07/19/2024 12:00:00 AM Interpretation: Performing Lab: Notes/Report: Baso Absolute 0.1 x10*3/mcL Basophil Auto 0.7 % Eos Absolute 0.3 x10*3/mcL Eosinophil Auto 3.2 % Hct 41.1 % Hgb 14.3 g/dL Lymph Absolute 3.1 x10*3/mcL Lymph Auto 35.1 % MCH 30.9 pg MCHC 34.9 g/dL MCV 88.5 fL [place] Absolute 0.6 x10*3/mcL [place] Auto 6.6 % MPV 7.3 fL Neutro [...] Performing Lab: Notes/Report: Uric Acid 7.3 mg/dL Reason For Referral Reason new onset elevated P SA Diagnosis 1 Elevated PSA (R97.20 ) Referral Organization [facility] Referring Provider First Name Destiny Referring Provider Last Name Panda Referring Provider Speciality Nurse Prac titioner Referred Provider Ellis Bernard Referred Provider Specialty Urology General Notes Caroline Pickard 0 12/04/2024 02:50:18 PM CDT >Referral faxed to Dr. Bernard [phone] Kaitlin 12/17/2024 02:21:31 PM CDT >please check on status of referral, Melly Caroline 02/27/2025 04:32:17 PM CDT >Pt seen on 01/06/25. Consult note in chart Clinical Notes WaverlyGely corriganOmaira 12/03 03:40:42 PM CDT >pt had labs done - thought he had a med check this month but it is in January, found that PSA is elevated. Seeking urology for f/u. Referral Priority Urgent Reason patient needs to see cardio and have stress test done in order to be cleared to have prostate surgery due to prostate cancer, surgery scheduled April 29, 2025 Diagnosis 1 Abnormal EKG (R94.31 ) Referral Organization [facility] Referring Provider First Name Destiny Referring Provider Last Name Panda Referring Provider Speciality Nurse Prac titioner Referred Provider Specialty Cardiology General Notes JfGely corriganOmaira 04/21 01:36:23 PM CDT >[place] [facility] office if able - needs to get in [place] please. has surgery on 04/29/2025 and has to be cleared with stress test d/t abnormal EKG, Caroline Pickard 04/21/2025 02:11:36 PM CDT >Referral faxed to [facility] [phone], Caroline Pickard 04/22/2025 11:08:41 AM CDT >Called and lvm with Jahaira at [facility] in [place]. Also faxed referral to [facility] ([place]) [phone], Caroline Pickard 04/22/2025 01:23:57 PM CDT >Received call from [facility] ([place]). Pt scheduled in [place] on 04/23/[address] Medellin. Pt aware Referral Priority Stat Referral Appointment Date 04/23/2025 Medications Medication SIG (Take, Route, Frequency, Duration) Notes Start Date End Date Status Fenofibrate 54 MG Tablet 1 tablet with f ood Orally Once a day; Duration: 30 days 02/04/2025 Active Atorvastatin Calcium 20 MG Tablet Oral; Duration: 90 Days Acti ve Lancets EACH MISCELLANEOUS; Duration: 0 06/10/2023 Active Sildenafil Citrate 50 MG Tablet 1-2 Oral as directed; Duration: 0 04/16/2024 Active Vitamin D3 25 MCG (1000 UT) Capsule 1 capsule Orally Once a day Active FreeStyle Lite Test - Strip In Vitro; Duration: 0 06/10/2023 Active Lisinopril 20 MG Tablet Oral; Duration: 90 Days Active Ozempic (1 MG/DOSE) 4 MG/3ML Solution Pen-injector 1 mg Subcutaneous once a week; Duration: 28 days 07/19/2024 Active Immunizations Vaccine Route Administration Date Status Comme nts Tdap Unknown 11/26/2015 Administered ,sourcename : Historical information -from other provider Source VFC Code: : Pfizer-[employer] Covid-19 Vaccine 1st dose Unknown 05/22/2021 [facility]ered [facility] ,sourcename : New immunization record Source VFC Code: : Influenza, quadrivalent (IIV4), split virus, 6-35 months dosage IM Intramuscular 08/29/2022 Administered ,sourcename : N ew immunization record ,immstatus : Complete Social History Social History Drug/Alcohol: Social Info [...] Problem History of malignant neoplasm of prostate (638077819) History of prostate cancer (Z85.46) Active confirmed Problem Body mass index 35.00 to 39.99 (802636958429666) Body mass index (BMI) 36.0-36.9, adult (Z68.36) 06/13/20 23 Active confirmed Problem Solitary pulmonary nodule (146110422) Solitary pulmonary nodule (R91.1) 03/17/20 21 Active confirmed mid right lung Problem Male erectile dysfunction, unspecified (N52.9) 04/16/20 24 Active confirmed Problem 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) Chondrocostal junction syndrome [Tietze] (M94.0) 02/07/20 Active confirmed Problem Pain in thoracic spine (881924884) Pain in thoracic spine (M54.6) 08/01/20 Active confirmed Problem Gastro-esophageal reflux disease without esophagitis (024299395) Gastro-esophageal reflux disease without esophagitis (K21.9) 04/16/20 Active confirmed Problem Mixed hyperlipidemia (579035279) Mixed hyperlipidemia (E78.2) 06/13/20 Active confirmed Problem Hyperglycemia due to type 2 diabetes mellitus (484720325660564) Type 2 diabetes mellitus with hyperglycemia (E11.65) 06/13/20 Active confirmed Problem Essential hypertension (53592751) Essential (primary) hypertension (I10) 06/13/20 Active confirmed Vital Signs Heart Rate 62 /min 04/07/2025 Temperature 97.3 degrees Fahrenheit 04/07/2025 Respiratory Rate 18 /min 02/04/2025 Height-cm 172.72 cm 04/07/2025 Oximetry 98 % 04/07/2025 Blood pressure diastolic 78 mm Hg 04/07/2025 Weight-kg 98.88 kg 04/07/2025 Height 68.00 in 04/07/2025 Blood pressure systolic 122 mm Hg 04/07/2025 Weight 218.0 lbs 04/07/2025 BMI 33.14 kg/m2 04/07/2025 Encounters Encounter Location Date Provider Diagnosis [address] [address] 08/01/2024 Destiny Mosqueda Male erectile dysfunction, unspecified N52.9 ; Gastro-esophageal reflux disease without esophagitis K21.9 ; Essential (primary) hypertension I10 ; Pain in thoracic spine M54.6 ; Hyperlipidemia, unspecified E78.5 and Type 2 diabetes mellitus with hyperglycemia E11.[address] [address] 01/16/2025 Jesús Garcialand Insect bite (nonvenomous) of lower back and pelvis, initial encounter S30.860A and Bitten or stung by nonvenomous insect and other nonvenomous arthropods, initial encounter W57.XXXA [address] [address] 02/04/2025 Destiny Mosqueda Type 2 diabetes mellitus with hyperglycemia E11.65 ; Elevated PSA R97.20 ; Mixed hyperlipidemia E78.2 ; Gastro-esophageal reflux disease without esophagitis K21.9 ; Essential (primary) hypertension I10 ; Male erectile dysfunction, unspecified N52.9 and Tobacco use Z72.[address] [address] 04/07/2025 Dr. David Brown Dysuria R30.0 ; Acut e low back pain without sciatica, unspecified back pain laterality M54.50 ; History of prostate cancer Z85.46 and Acute non-recurrent sinusitis, unspecified location J01.[address] [address] 08/24/2024 Provider Migration [address] [address] 08/25/2024 Provider Migration [address] [address] 12/01/2024 Destiny Mosqueda [address] [address] 01/07/2025 Destiny Mosqueda Type 2 diabetes mellitus with hyperglycemia E11.[address] [address] 01/29/2025 Destiny Mosqueda Mixed hyperlipidemia E78.2 ; Type 2 diabetes mellitus with hyperglycemia E11.65 ; Gastro-esophageal reflux disease without esophagitis K21.9 and Encounter for screening for malignant neoplasm of prostate Z12.[address] [address] 04/09/2025 Destiny Mosqueda [address] [address] 04/21/2025 Destiny Mosqueda Assessments Encounter Date Diagnosis (ICD Code) Assessment Notes Treatment Notes Treatment Clinical Notes Section Notes 04/07/2025 Dysuria (ICD-10 - R30.0) 01/29/2025 Mixed hyperlipidemia (ICD-10 - E78.2) 01/07/2025 Type 2 diabetes mellitus with hyperglycemia (ICD-10 - E11.65) 02/04/2025 Type 2 diabetes mellitus with hyperglycemia (ICD-10 - E11.65) A1C went from 5.5 to 5.9, continue Ozempic 1mg weekly. He is no longer taking metformin 01/16/2025 Insect bite (nonvenomous) of lower back [...] Male erectile dysfunction, unspecified (ICD-10 - N52.9) 01/29/2025 Gastro-esophageal reflux disease without esophagitis (ICD-10 - K21.9) 02/04/2025 Mixed hyperlipidemia (ICD-10 - E78.2) Recent trigs have gone up to 429. Rest of lipids are good, but trigs have remain elevated. Will start fenofibrate 54mg and continue atorvastatin 40mg daily 04/07/2025 History of prostate cancer (ICD-10 - [...] Insured Coverage Start Date Coverage End Date [employer] [id number] [facility] [place], [place] [address] [id number] Brett Garibay Self - patient is the [...]
--- OUTSIDE RECORDS SUMMARY | 2025-04-29 00:54 | XMS_ITS | Encounter Summary ---
Author Organization [facility] Address [address] [place] [address] Care Team Providers Care Wire Twister Name Role Phone Kiketracy Destiny Francis [facility] Primary Care Provider Olivia Medellin MD Unavailable [phone] Ellis Bernard MD Unavailable [phone] Reason for Visit * Reason Comments Follow Up Cardiac clearance Encounter Details Date Type Department Care Team (Late st Contact Info) Description 04/23/2025 12:20 PM CDT [facility] [address] [address] Olivia Medellin MD [address] [place] [address] Follow Up (Cardiac clearance) Social History Tobacco Use Types Packs/Day Years Used Date Smoking Tobacco: Every Day Cigarettes 0.5 35 Smokeless Tobacco: Current Chew Alcohol Use Standard Drinks/Week Comments Never 0 [...] 06/08/2023 How often do you attend chur ch or sikh services? 1 to 4 times per year 06/08/2023 Do you belong to any clubs o r organizations such as presybeterian groups, unions, fraternal or athletic groups, or [...] care, and heating? Not very hard 06/08/2023 [facility] - Occupational Stress [...] place to sleep or slept in a penitentiary (including now)? No 06/08/2023 Education Answer Date Recorded What is the highest level of school you have completed or the highest degree you have received? Associate degree: occupational, technical, or vocational program 06/08/2023 Sex and Gender Information Value Date Recorded Sex Assigned at Not on file Legal Sex Male 8:07 AM CDT Gender Identity Not on file Sexual Orientation Not on file documented as of this encounter Last Filed Vital Signs Vital Sign Reading Time Taken Comments Blood Pressure 132/80 04/23/2025 11:50 AM CDT Pulse 67 04/23/2025 11:50 AM CDT Temperature - - Respiratory Rate 16 04/23/2025 11:50 AM CDT Oxygen Saturation 99% 04/23/2025 11:50 AM CDT Inhaled Oxygen Concentration - - Weight 98.9 kg (218 lb) 04/23/2025 11:50 AM CDT Height 172.7 cm (5' 8) 04/23/2025 11:50 AM CDT Body Mass Index 33.15 04/23/2025 11:50 AM CDT documented in this encounter Functional Status * Are you deaf or do you have serious difficulty hearing Answer Date of Assessment Author Status No 06/08/2023 9:47 PM CDT Fabi Israel RN Active * Are you blind or do you have serious difficulty seeing, even when wearing glasses? Answer Date of Assessment Author Status No 06/08/2023 9:47 PM CDT Fabi Israel RN Active * Do you have serious difficulty walking or climbing stairs? Answer Date of Assessment Author Status No 06/09/2023 1:00 AM CDT Fabi Israel RN Active * Do you have difficulty dressing or bathing? Answer Date of Assessment Author Status No 06/09/2023 1:00 AM CDT Fabi Israel RN Active * Because of a physical, mental, or emotional condition, do you have difficulty doing errands alone such as visiting a doctor's office or shopping? Answer Date of Assessment Author Status No 06/09/2023 1:00 AM CDT Fabi Israel RN Active documented as of this encounter Mental Status * Because of a physical, mental, or emotional condition, do you have serious difficulty concentrating, remembering, or making decisions? Answer Entry Date Author Status No 06/09/2023 1:00 AM CDT Fabi Israel RN Active documented in this encounter Patient Instructions * Patient Instructions* Mae Johansen RN - 04/23/2025 12:20 PM CDT We will call in February 2026 to schedule for your 1 year appt w/ Dr. Medellin documented in this encounter Progress Notes * Olivia Medellin MD - 04/23/2025 12:20 PM CDT Reason for Visit: New consult for preop evaluation History of Present Illness: Mr Garibay is 54-year-old man with no prior cardiac issues. He has been diagnosed with prostate cancer and is undergoing surgery next week. He is here for preop cardiovascular evaluation at the request of his primary care physician. He denies any chest pain, chest pressure, chest discomfort or chest tightness. He is active and does regular activities that exceed 4 METS. He denies any history of myocardial infarction or any congenital heart issues. He does smoke. He has a history of type 2 diabetes mellitus now that is much better that he is on Ozempic. His blood pressure is controlled on lisinopril. Subjective Medications: Current Outpatient Medications: atorvastatin (LIPITOR) 10 MG tablet, Take 1 tablet (10 mg total) by mouth nightly at bedtime., Disp: , Rfl: Blood Glucose Monitoring Suppl (D-Red Tricycle GLUCOMETER) w/Device Kit, 1 Units by Does not apply route nightly at bedtime., Disp: 1 kit, Rfl: 0 lisinopril (PRINIVIL) 20 MG tablet, Take 1 tablet (20 mg total) by mouth daily., Disp: , Rfl: MILK THISTLE OR, , Disp: , Rfl: multi vitamin/minerals (THERA-M ENHANCED) tablet, Take 1 tablet by mouth daily., Disp: , Rfl: semaglutide (OZEMPIC, 1 MG/DOSE,) 2 MG/1.5ML injection (PEN), Inject 1 mg into the skin every 7 days. Indications: Diabetes, Disp: , Rfl: Turmeric (QC TUMERIC COMPLEX OR), , Disp: , Rfl: vitamin D3 (CHOLECALCIFEROL) 25 mcg tablet, Take 1 tablet (25 mcg total) by mouth daily., Disp: , Rfl: Not on File Past Medical History[1] Past Surgical History[2] Social History[3] Family History[4] No family status information on file. Review of Systems Constitutional: Negative for recent unintentional weight loss and new or significant fatigue. HENT: Negative for nosebleeds. Eyes: Negative for double vision. Respiratory: Negative for new or significant shortness of breath and hemoptysis. Cardiovascular: Negative for palpitations, leg swelling and PND. Gastrointestinal: Negative for nausea and vomiting. Genitourinary: Negative for dysuria. Musculoskeletal: Negative for new or worsening joint stiffness/pain. Neurological: Negative for focal weakness. Endo/Heme/Allergies: Negative for new or significant bruising/bleeding. Psychiatric/Behavioral: Negative for depression and new or significant memory loss. Vitals: 04/23/25 1150 BP: 132/80 Patient Position: Sitting BP Location: Left arm Pulse: 67 Weight: 98.9 kg (218 lb) Height: 1.727 m (5' 8) Body mass index is 33.15 kg/m??. Objective Cardiac Exam Rate/Rhythm: Regular rhythm. PMI: Pulses: Normal pulses. Heart Sounds: Normal heart sounds. Normal S1 sounds. Normal S2 sounds. Murmurs: No murmur present Edema left: 0. Edema Right: 0. Physical Exam Constitutional: No distress. Healthy Appearance. HENT: Oropharynx clear. No nasal discharge. Eyes: Conjunctivae normal. Neck: Normal range of motion. Neck supple. No JVD. No neck adenopathy. No thyromegaly. Abdomen: Abdomen soft. Bowel sounds normal. No distension. No tenderness. Pulmonary: Effort normal. Breath sounds normal. No rales. No wheezes. Skin: Warm. No rash. No jaundice. No cyanosis. Musculoskeletal: No tenderness. No kyphosis. Neurological: Alert. Oriented x 3. Comments: EKG shows sinus rhythm no acute ST-T changes no evidence of prior infarcts. Diagnoses/Impression: Type 2 diabetes mellitus: Patient is being managed with Ozempic and he is doing well after his lost30 pounds of weight. Essential hypertension: Blood pressure is well-controlled on the lisinopril 20 mg daily. Dyslipidemia: Patient is on statin Lipitor 10 mg daily. Tobacco abuse disorder: Smoking cessation was discussed extensively with patient. Preoperative cardiovascular assessment: Patient is low risk for his upcoming prostate surgery and no further cardiovascular restratification is needed. Please proceed with prostate surgery. Follow-up with us in 1 year. [1] Past Medical History: Diagnosis Date Abnormal EKG 04/17/2025 SR w/short ME interval GERD without esophagitis History of prostate cancer Hypertension Mixed hyperlipidemia Solitary pulmonary nodule Type 2 diabetes mellitus with hyperglycemia (CMS/HCC HHS/HCC) [2] Past Surgical History: Procedure Laterality Date APPENDECTOMY BIOPSY prostate COLONOSCOPY [3] Social History Tobacco Use Smoking status: Every Day Current packs/day: 0.50 Average packs/day: 0.5 packs/day for 35.0 years (17.5 ttl pk-yrs) Types: Cigarettes Smokeless tobacco: Current Types: Chew Substance Use Topics Alcohol use: Never Drug use: Never [4] No family history on file. documented in this encounter Plan of Treatment Not on file documented as of this encounter Procedures Procedure Name Priority Date/Time Associated Diagnosis Comments ELECTROCARDIOGRAM (NON MIDMARK ACQUIRED) Routine 04/23/2025 11:56 AM CDT Essential (primary) hypertension documented in this encounter Results * ELECTROCARDIOGRAM (04/23/2025 11:56 AM CDT) 04/23/2025 11:5 6 AM CDT [facility]ative [facility] 04/25/2025 4:28 PM CDT [facility] [address] [place] [address] Test Date: 2025-04-23 Pat Name: BRETT GARIBAY Department: 105 Room: Gender: Male Wood Sawyer: : 1970 Requested By: OLIVIA MEDELLIN Order Number: [id number] Reading MD: Olivia Medellin Measurements Intervals [place] Rate: 63 P: 31 ME: 128 QRS: 51 QRSD: 120 T: 49 QT: 387 QTc: 397 Interpretive Statements SINUS RHYTHM Procedure Note Olivia Medellin MD - 04/25/2025 [facility] [address] [place] [address] Test Date: 2025-04-23 Pat Name: BRETT GARIBAY Department: 105 Room: Gender: Male Wood Sawyer: : 1970 Requested By: OLIVIA MEDELLIN Order Number: [id number] Reading : Olivia Medellin Measurements Intervals [place] Rate: 63 P: 31 ME: 128 QRS: 51 QRSD: 120 T: 49 QT: 387 QTc: 397 Interpretive Statements SINUS RHYTHM us Olivia Medellin MD PROCEDURES-ORDERABLE NO NIGEL RGE Final Result [facility] documented in this encounter Visit Diagnoses Diagnosis Essential (primary) hypertension Unspecified essential hypertension documented in this encounter Care Teams Wire Twister Relationship Specialty Start Date End Date Destiny Mosqueda, [facility] [address] [place] [address] PCP - General FAMILY PRACTICE 04/22/25 Olivia Medellin MD [address] [place] [address] [place] Hogshead Inspector INTERVENTIONAL CARDIOLOGY 04/22/25 Ellis Bernard MD [address] [place] [address] Consulting Physician UROLOGY 04/23/25 documented as of this encounter
--- OUTSIDE RECORDS SUMMARY | 2025-04-29 00:54 | XMS_ITS | Patient Health Record ---
Author Organization [facility] Address [address] [address] Care Team Providers Care Radio Television Technical Director Name Role Phone Ruben Cervantes Primary Care Provider [phone] Ruben Cervantes Unavailable Unavailable Reason For Referral No Information Plan Of Treatment No Information
--- OUTSIDE RECORDS SUMMARY | 2025-04-29 00:54 | XMS_ITS ---
Author Organization [facility] Address [address] [address] Care Team Providers Care Community Artist Name Role Phone Ruben Cervantes Primary Care Provider [phone] Ruben Cervantes Unavailable Unavailable Encounters Encounter Location Date Provider Diagnosis [facility] [address] [place] [address] 06/28/2024 Ruben Cervantes Plan Of Treatment No Information Progress Notes * JOSH SORENSONRICHMONDOB:1970 (54 yo M)Acc No.[id number]:06/28/2024 Patient: IRASEMA MCKEON Provider: Halima Cervantes MD :1970 A ge:53 Y S ex:Male Date:06/28/2024 Address:[address] [place], [place] [id number] Subjective: * Chief Complaints: * Objective: * Vitals: Assessment: Plan: * Treatment: * Billing Information: * Visit Code: * Procedure Codes: * Electronic signature of Jasbir Cervantes MD on 04/29/2025 at 12:54 AM CDT Sign off status: Pending * Provider: Halima Cervantes MD Date: Generated for Tavo merrill/Selwyn/Kelly on: 0 04/29/2025 12:54 AM CDT
--- OUTSIDE RECORDS SUMMARY | 2025-04-29 00:55 | XMS_ITS | Clinical Summary ---
Author Organization [facility] Address [address] [place] [address] Care Team Providers Care Continuing Education Instructor Name Role Phone Kiketracy Destiny Francis [facility] Primary Care Provider Olivia Medellin MD Unavailable [phone] Ellis Bernard MD Unavailable [phone] Medications Blood Glucose Monitoring Suppl (D-CARE GLUCOMETER) w/Device KitIndications: Type 2 diabetes mellitus without complication, unspecified whether watermaster insulin use ([facility]) 1 Units by Does not apply route nightly at bedtime. 1 kit 06/09/20 23 Active lisinopril (PRINIVIL) 20 MG tablet Take 1 tablet (20 mg total) by mouth daily. Active semaglutide (OZEMPIC, 1 MG/DOSE,) 2 MG/1.5ML injection (PEN)Indication s:Diabetes Mellitus Inject 1 mg into the skin every 7 days. Indications: Diabetes Active vitamin D3 (CHOLECALCIFERO L) 25 mcg tablet Take 1 tablet (25 mcg total) by mouth daily. Active Turmeric (QC TUMERIC COMPLEX OR) Active multi vitamin/mineral s (THERA-M ENHANCED) tablet Take 1 tablet by mouth daily. Active MILK THISTLE OR Acti ve atorvastatin (LIPITOR) 10 MG tablet Take 1 tablet (10 mg total) by mouth nightly at bedtime. Active metFORMIN (GLUCOPHAGE) 500 MG tablet Take 1 tablet (500 mg total) by mouth daily with breakfast. 30 tablet 3 06/09/20 025 Discontinued(Di scontinued by another clinician) Insulin Glargine, 1 Unit Dial, 300 UNIT/ML Solution Pen-injector Inject 10 Units into the skin every evening. 1.5 mL 6 06/09/20 23 025 Discontinued atorvastatin (LIPITOR) 40 MG tablet Take 1 tablet (40 mg total) by mouth nightly at bedtime. 30 tablet 3 06/09/20 23 025 Discontinued(Di scontinued by another clinician) fenofibrate (TRICOR) 54 MG tablet Take 1 tablet (54 mg total) by mouth daily with breakfast. 025 Discontinued(Di scontinued by another clinician) sildenafil (VIAGRA) 50 MG tablet Take 1 tablet (50 mg total) by mouth daily as needed for Erectile Dysfunction. 025 Discontinued(Di scontinued by another clinician) Active Problems Problem Noted Date Diagnosed Date Diabetes ([facility]) 06/08/2023 Encounters Date Type Department Care Team Description 04/23/2025 12:20 PM CDT Office Visit [facility] [address] [place] [address] Olivia Medellin MD Follow Up (Cardiac clearance) 04/23/2025 Travel 04/23/2025 Orders Only [facility] [address] [place] [address] Olivia Medellin MD 04/22/2025 Abstract [facility] [address] [place] [address] Abstract, Doc Pccl 04/22/2025 Telephone [facility] [facility], [address] [address] Bethanie Sanchez Schedule Test 04/22/2025 Telephone [facility] [address] [place] [address] Olivia Medellin MD Referral 04/17/2025 Scan [facility] [address] [place] [address] Scanned, Doc Pccl ECG (SCAN) 04/07/2025 9:00 AM CDT - 04/07/2025 11:59 PM CDT Hospital Encounter [facility] [address] [place] [address] [place] [address] Katelyn Brown MD Discharge Disposition: Home or Self Care (Routine Discharge) 04/07/2025 Travel 02/25/2025 Scan [facility] [address] [place] [address] Scanned, Doc Pccl from Last 3 Months Social History Tobacco Use Types Packs/Day Years Used Date Smoking Tobacco: Every Day Cigarettes 0.5 35 Smokeless Tobacco: Current Chew Tobacco Cessation:Ready to Q uit: Not Asked; Counseling Given: Not Answered Alcohol Use Standard Drinks/Week Comments Never 0 [...] week 06/08/2023 How often do you attend [facility] or pentecostalism services? 1 to 4 times per year 06/08/2023 Do you belong to any clubs o r organizations such as jewish groups, unions, fraternal or athletic groups, or [...] care, and heating? Not very hard 06/08/2023 [facility] - Occupational Stress [...] place to sleep or slept in a care home (including now)? No 06/08/2023 Education Answer Date [...] Pulse 67 04/23/2025 11:50 AM CDT Temperature 36 C (96.8 F) 11/28/2023 10:01 AM INSURANCE ACCOUNT ASSISTANT Respiratory Rate 16 04/23/2025 11:50 AM CDT Oxygen Saturation 99% 04/23/2025 11:50 AM CDT Inhaled Oxygen Concentration - - Weight 98.9 kg (218 lb) 04/23/2025 11:50 AM CDT Height 172.7 cm (5' 8) 04/23/2025 11:50 AM CDT Body Mass Index 33.15 04/23/2025 11:50 AM CDT Plan of Treatment Health Maintenance Due Date Last Done Comments Colorectal Cancer Screening Colonoscopy (10 Years) 1970 Kidney Health Evaluation 1970 Annual Physical 1974 Diabetes: Retinopathy Eye Exam 1989 Hepatitis C 1989 Hepatitis B Vaccines (1 of 3 - 19+ 3-dose series) 1990 Pneumococcal Vaccine: 50+ Years (1 of 2 - PCV) 1990 Zoster Vaccines (1 of 2) 2021 COVID-19 Vaccine (3 - 2023-2 5 season) 2024 05/22/2021, 05/01/2021 PHQ-2 (Physician [place]) 09/25/2024 Hemoglobin A1C 08/01/2025 01/29/2025, 11/28/2024, 06/09/2023 DTaP, Tdap and Td Vaccines ( 3 - Td or Tdap) 11/25/2025 11/26/2015, 04/19/2000, 05/17/1990 Lipid Panel 01/29/2026 01/29/2025 Meningococcal B Vaccine Aged Out No l [...] 04/23/2025 11:56 AM CDT Essential (primary) hypertension ECG GENERIC (SCAN ORDER) Routine 025 12:00 AM CDT XR PELVIS 1 OR 2 VIEWS Routine 9:18 AM CDT Acute midline low back pain without sciatica COMPREHENSIVE METABOLIC PANEL Routine 01/29/2025 LIPID PANEL Routine 01/29/2025 CBC, MANUAL DIFF Routine 01/29/2025 THYROXINE, FREE (FT4) Routine 01/29/2025 HEMOGLOBIN, GLYCOSYLATED Routine 01/29/2025 THYROID STIM HORMONE TSH Routine 01/29/2025 MAGNESIUM Routine 01/29/2025 from Last 3 Months Results * ELECTROCARDIOGRAM (04/23/2025 11:56 AM CDT) 04/23/2025 11:5 6 AM CDT [facility]ative [facility] - 04/25/2025 4:28 PM CDT [facility] [place] [address] Test Date: 2025-04-23 Pat Name: IRASEMA GARIBAY Department: 105 Room: Gender: Male Contact Clerk: : 1970 Requested By: OLIVIA MEDELLIN Order Number: [id number] Reading MD: Olivia Medellin Measurements Intervals [place] Rate: 63 P: 31 [place]: 128 QRS: 51 QRSD: 120 T: 49 QT: 387 QTc: 397 Interpretive Statements SINUS RHYTHM Procedure Note Olivia Medellin MD - 04/25/2025 [facility] [address] [place] [address] Test Date: 2025-04-23 Pat Name: IRASEMA GARIBAY Department: 105 Room: Gender: Male Contact Clerk: : 1970 Requested By: OLIVIA MEDELLIN Order Number: [id number] Reading MD: Olivia Medellin Measurements Intervals [place] Rate: 63 P: 31 [place]: 128 QRS: 51 QRSD: 120 T: 49 QT: 387 QTc: 397 Interpretive Statements SINUS RHYTHM us Olivia Medellin MD PROCEDURES-ORDERABLE NO NIGEL RGE Final Result Performing Organization Address [facility] Co de Phone Number [facility] * ECG (04/17/2025 12:00 AM CDT) 04/17/2025 us Doc Pccl Scanned SCANNING Final Result Performing Organization Address [facility] de Phone Number [facility] ONBASE * XR PELVIS 1 OR 2 VIEWS (04/07/2025 9:18 AM CDT) Anatomical Region Laterality Modality Pelvis Computed Tomogra phy 04/07/2025 9:36 AM CDT Impressions 04/07/2025 10:48 AM CDT IMPRESSION: No radiologic evidence of fracture. Minimal bony proliferation lateral aspect dome of each acetabulum. The attending radiologist has reviewed the image(s) and agrees with the content of this report. Ordered By: KATELYN BROWN Interpreted By: Jose Guadalupe Farah MD, 04/07/2025 9:36 AM Narrative 04/07/2025 10:48 AM CDT [address] [place] [address] Examination: XR PELVIS 1 OR 2 VIEWS [...] Procedure Note Hitesh Roblero MD - 04/07/[address] [place] [address] Examination: XR PELVIS 1 OR 2 VIEWS [...] with thecontent of this report. Ordered By: KATELYN BROWN Interpreted By: Jose Guadalupe Farah MD, 04/07/2025 9:36 AM us Katelyn Brown MD GENERAL IMAGING Final Result * HEMOGLOBIN, GLYCOSYLATED (01/29/2025) HGB A1C 5.9 % Comment:EAG 123 Narrative Resulting Agency Comment Received from pcp us Default History Genericprovider LABORATORY Final Result * COMPREHENSIVE METABOLIC PANEL (01/29/2025) SODIUM S/P/B 138 GLUCOSE 94 mg/dL AST 24 BUN 13 CREATININE S/P/B 0.93 0.7 - 1.3 CALCIUM S/P/B 8.9 POTASSIUM S/P/B 4.1 CHLORIDE S/P/B 106 ALT 35 GFR ESTIMATE >90 Narrative Resulting Agency Comment Received from pcp Default History Genericprovider LABORATORY Final Result * LIPID PANEL (01/29/2025) CHOLESTEROL 125 TRIGLYCERIDES 429 HDL 24 LDL (CALCULATED) na CHOL/HDL RATIO 5 NON HDL CHOLESTEROL 101 Narrative Resulting Agency Comment Received from pcp Default History Genericprovider LABORATORY Final Result * CBC, MANUAL DIFF (01/29/2025) WBC 5.1 HGB 14.3 HCT 40.8 PLT 300 Narrative Resulting Agency Comment Received from pcp Default History Genericprovider LABORATORY Final Result * THYROXINE, FREE (FT4) (01/29/2025) FREE T4 0.75 Narrative Resulting Agency Comment Received from pcp Default History Genericprovider LABORATORY Final Result * THYROID STIM HORMONE TSH (01/29/2025) TSH 0.82 Narrative Resulting Agency Comment Received from pcp Default History Genericprovider LABORATORY Final Result * MAGNESIUM (01/29/2025) MAGNESIUM 1.9 Narrative Resulting Agency Comment Received from pcp Default History Genericprovider LABORATORY Final Result from Last 3 Months Insurance [facility] Care Teams Continuing Education Instructor Relationship Specialty Start Date End Date Destiny Mosqueda, [facility]- [address] [place], [place] [id number] PCP - General FAMILY PRACTICE 04/22/25 Olivia Medellin MD [address] [place] [id number] [place] Cycle Consultant INTERVENTIONAL CARDIOLOGY 04/22/25 Ellis Bernard MD [address] [place] [id number] Consulting Physician UROLOGY 04/23/25
[2025-04-29] MEDS: LACTATED RINGERS 1,000 ML 30 ML IV CONT ×2 (06:18→13:05)
[2025-04-29 06:40] LABS: Partial Thromboplastin Time 39.4 Seconds (22.3-36.8)
--- NOTE | 2025-04-29 07:17 | P.HP_ITS ---
H&P: HPI History of Present Illness Date/Time: 04/29/25 07:17 Chief Complaint: adenocarcinoma of prostate Narrative: 54 yr old male with adenocarcinoma of prostate [place] 4+3=7. All cores were positive . PSMA scan without metastatic disease. Patient here for robotic assist nerve sparing prostatectomy with bilateral plnd. Review of Systems Review of Systems: All systems reviewed & are unremarkable except as noted in HPI and below PMFSH Social History Social History Smoking packs per day: 2 Smoking cigarettes per day: 40.0 Years smoked: 39 Smoking pack-years: 78.00 Smoking status: Current every day smoker Tobacco type: cigarettes Living arrangements: with family Spiritual care concerns: No Meds Home Medications and Allergies Home Medications ?Medication ?Instructions ?Recorded ?Confirmed ?Type aspirin 81 mg tablet,delayed 81 mg PO DAILY 04/17/25 04/17/25 History release (Adult Low Dose Aspirin) atorvastatin 10 mg tablet 10 mg PO QPM 04/17/25 04/17/25 History cholecalciferol (vitamin D3) 50 2,000 unit PO DAILY 04/17/25 04/17/25 History mcg (2,000 unit) capsule lisinopril 20 mg tablet 20 mg PO .Q EVENING 04/17/25 04/17/25 History milk thistle seed extract 140 250 mg PO DAILY 04/17/25 04/17/25 History mg-milk thistle 500 mg capsule multivitamin (Daily Vitamin 1 tablet PO DAILY 04/17/25 04/17/25 History Formula tablet) semaglutide 1 mg/dose (4 mg/3 mL) 1 mg subcut WEEKLY 04/17/25 04/17/25 History subcutaneous pen injector (Ozempic) turmeric 400 mg capsule 1,000 mg PO DAILY 04/17/25 04/17/25 History Allergies Allergy/AdvReac Type Severity Reaction Status Date / Time No Known Allergies Allergy Verified 04/29/25 07:09 Exam Const: General: cooperative and comfortable Resp: Effort & Inspection: normal respiratory effort Cardio: Rate: regular rate Rhythm: regular rhythm Assessment and Plan Assessment and plan (1) Prostate cancer: Code(s): C61 - Malignant neoplasm of prostate Status: Acute Assessment and Plan: Robotic assist nerve sparing prostatectomy with bilateral plnd.
--- NOTE | 2025-04-29 07:20 | WPDHPUPDATE1 ---
History and Physical Update Update Date/Time: 04/29/25 07:20 History and Physical has been reviewed, including an updated exam of the patient. There are NO changes in the patient's condition. Risks, benefits, and alternatives have been discussed and questions answered. Patient agrees to proceed with procedure.
[2025-04-29] MEDS: ceFAZolin 2 GM in SODIUM CHLORIDE 0.9% IV 50 ML 100 ML IVPB (07:36)
[2025-04-29] MEDS: BUPivacaine HCL 0.5% 10 ML AMP 30 ML INFILTRATE (08:30)
--- NOTE | 2025-04-29 10:33 | S_PTH ---
PATIENT: Brett Garibay LOC: [facility] U#:[id number] AGE/SX: 54/M ROOM: RE04/29/[address]: Ellis Bernard, : 1970 BED: DIS: 04/30/2025 SPEC #: [id number] RECD: 04/29/25 13:24 STATUS: ANDRES REJemal #: [id number] DYLLAN: 04/29/25 10:[address]: Marco Antonio,Ellis Barrientos DEPT: [facility] Surgical RECD BY: Sirena Pollard ENTERED: 04/29/25 13:24 SP TYPE: Surgical OTHR DR: Destiny Mosqueda, ANP Tissues: A - Prostate Bx B - Prostate Bx C - Lymph Node D - Prostate Procedures: Unstained Slides Hematoxylin and Eosin Stain Gross and Microscopic Level 4 Gross and Microscopic Level 6 Prostate Biopsy
[2025-04-29] MEDS: KETOROLAC 30 MG/ML VIAL (*BKC) IV PUSH ×2 (12:42→19:42)
--- NOTE | 2025-04-29 12:49 | W.PM.PROC2 ---
Procedure Note - Detailed Date of Procedure 04/29/25 Pre-op Diagnosis prostate CA Post-op Diagnosis Same Procedure Performed Robotic assisted nerve-sparing prostatectomy with bilateral pelvic lymph node dissection and extensive adhesiolysis Surgeon Ellis Bernard MD Anesthesia General Description of Procedure patient was taken to the operative suite correctly identified. Once anesthesia was obtained was placed in dorsal lithotomy position and prepped and draped usual sterile fashion. Midline incision was carried down to the rectus fascia. Rincon catheter had been placed. Veress needle was inserted the abdomen was insufflated to 15 mmHg pressure. Camera port trocar was placed under direct vision. We then placed our other working ports. It was noted that he had significant amount of adhesions of the small bowel adhered to the anterior abdominal wall on the right. He had the typical adhesions on the left. Once the robot was docked attention was given to the adhesions. We went ahead and freed up all of these adhesions. 0 posterior approach was then taken. Seminal vesicles were dissected out their entirety. Vas were transected. Plane between the prostate and rectum was developed. Bladder was taken down. He has a very wide umbilical ligaments. Space of Retzius was developed bilaterally. Puboprostatic were taken down. Dorsal venous complex was isolated and secured using 0 Vicryl to the pubic bone. Bladder neck was then opened anteriorly. It was noted that I had cut into the prostate at the base. I then went ahead and resected some of the tissue off the anterior bladder neck and sent there was a separate specimen. posterior bladder neck was then taken down. Denies IVs was incised. Pedicles were taken. It was noted that the left side was much more adherent. It was more of a nerve-sparing on the right rather than the left. Dorsal venous complex was transected as was the urethra. He also was adhered at the left apex. I sent a separate specimen from the left apex. Specimen was placed in Endo-Catch bag. Bilateral pelvic lymphadenectomies were performed in the standard fashion. Surgicel was then placed in the obturator fossa bilaterally and over the nerves. I would had reconstructed the bladder neck using V lock suture at the 3:00 a.m. and 6 o'clock position. A Corby stitch was then placed. The lock running anastomosis was used for the anastomosis. There was good mucosa approximation. Sixteen Hungarian Rincon was placed with 10 cc in the balloon. Bladder was filled with 200 cc of saline. It irrigated well without any evidence of extravasation. Robot was undocked. All lap counts needle counts were correct. Specimen was brought out through the midline incision. 0 Vicryl was used to close the rectus fascia. Subcuticular stitches were placed. Patient tolerated procedure well without complications and was taken recovery stable condition. This completes dictation. Please send a copy of op note to my office Estimated Blood Loss 100 Drains Yes Packing No Pathology Yes Complications No immediate complications Condition Stable Disposition PACU
[2025-04-29] MEDS: fentaNYL CITRATE INJ (*CRX) 100 MCG/2 ML VIAL 25 MCG IV PUSH ×4 (13:37→13:44)
--- NOTE | 2025-04-29 14:55 | PC.NURSE ---
This patient, Brett Garibay, was admitted to 3 [facility] Surg Room 319-01. Patient/family oriented to hospital policies and general routines including ID bracelet, bed and alarms, visiting hours, pain management, procedures, bathroom and other care routines, personal items, smoking policy, room service/diet, and visiting hours. Information on how to activate the Rapid Response Team has been discussed. Patient/Family are encouraged to report perceived risks to care and to ask questions if they do not understand what they are told or what they should do.
[2025-04-29] MEDS: LACTATED RINGERS 1,000 ML 125 ML IV CONT ×2 (15:31→23:25)
[2025-04-29] MEDS: HYDROcodone/acetaminophen (*CRX) 5-325 MG TABLET 1 TAB PO ×2 (15:32→23:24)
[2025-04-29] MEDS: DOCUSATE SODIUM 100 MG CAPSULE PO (18:18)
[2025-04-29] MEDS: ATORVASTATIN 10 MG TABLET PO (18:18)
[2025-04-29] MEDS: HYOSCYAMINE SULFATE 0.125 MG TABLET SUBLINGUAL (20:37)
[2025-04-30 00:32] VITALS: BP 112/60; PULSE 65; RESP 20; TEMP 36.7; O2SAT 97
[2025-04-30 04:32] VITALS: BP 114/68; PULSE 64; RESP 18; TEMP 36.8; O2SAT 97
[2025-04-30] MEDS: HYOSCYAMINE SULFATE 0.125 MG TABLET SUBLINGUAL (05:03)
[2025-04-30] MEDS: KETOROLAC 30 MG/ML VIAL (*BKC) IV PUSH (05:04)
[2025-04-30 05:56] LABS: Hematocrit 34.5 % (42.0-52.0); Hemoglobin 11.6 g/dL (14.0-18.0)
[2025-04-30] MEDS: LACTATED RINGERS 1,000 ML 125 ML IV CONT ×2 (06:17→13:23)
[2025-04-30 06:18] LABS: Anion Gap 7 mmol/L (4-12); Blood Urea Nitrogen 12 mg/dL (9-20); Calcium 8.6 mg/dL (8.4-10.2); Carbon Dioxide 22 mmol/L (22-30); Chloride 105 mmol/L (98-107); Estimated CRCL calculation 104 ml/min; Estimated Glomerular Filt Rate > 60; Glucose 110 mg/dL (65-110); Potassium 4.1 mmol/L (3.4-5.0); Sodium 134 mmol/L (137-145)
[2025-04-30] MEDS: HYDROcodone/acetaminophen (*CRX) 5-325 MG TABLET 2 TAB PO ×2 (06:27→13:17)
--- NOTE | 2025-04-30 08:06 | WPDUROPN2 ---
Progress Note: A&P Assessment and Plan (1) Prostate cancer: Code(s): C61 - Malignant neoplasm of prostate Status: Acute Assessment and Plan: Doing well overall. Increase activity. Will monitor RE output this morning. 70 cc overnight. He remains minimal will remove RE in discharged home later this afternoon. Scripts will a been sent to his pharmacy. He is scheduled for catheter cystogram in 1 week Subjective Subjective Date/Time Seen: 04/30/25 08:06 Interval history: Doing well overall postop day 1. From radical prostatectomy with bilateral pelvic lymph node dissection. Typical postop abdominal discomfort Review of Systems Review of Systems: All systems reviewed & are unremarkable except as noted in HPI and below Exam Const: General: cooperative Resp: Effort & Inspection: normal respiratory effort Cardio: Rate: regular rate Rhythm: regular rhythm GI: GI Palp: Yes Soft to palpation Urinary Catheter: Urinary Catheter: urine clear Objective Data Vital Signs Vital Signs: Vital Signs - 24 hr 04/29/25 13:05 04/29/25 13:15 04/29/25 13:30 Temperature 36.7 C Pulse Rate 89 82 84 Respiratory Rate 10 L 16 16 Blood Pressure 122/101 H 149/82 H 146/75 H Pulse Oximetry 99 100 100 Oxygen Delivery Simple Face Mask Simple Face Mask Simple Face Mask Oxygen Flow Rate 8 8 8 04/29/25 13:45 04/29/25 13:55 04/29/25 14:00 Temperature Pulse Rate 87 77 Respiratory Rate 12 13 Blood Pressure 147/71 H 139/77 Pulse Oximetry 100 98 95 Oxygen Delivery Simple Face Mask Room Air Room Air Oxygen Flow Rate 8 04/29/25 14:15 04/29/25 14:30 04/29/25 14:43 Temperature Pulse Rate 79 82 77 Respiratory Rate 14 12 14 Blood Pressure 135/76 137/83 130/81 Pulse Oximetry 98 94 96 Oxygen Delivery Room Air Room Air Room Air Oxygen Flow Rate 04/29/25 15:00 04/29/25 15:15 04/29/25 15:45 Temperature 36.6 C 36.3 C L 36.6 C Pulse Rate 79 81 83 Respiratory Rate 14 15 15 Blood Pressure 156/88 H 125/62 131/94 H Pulse Oximetry 98 97 98 Oxygen Delivery Oxygen Flow Rate 04/29/25 16:32 04/29/25 20:00 04/29/25 20:32 Temperature 36.6 C 36.9 C Pulse Rate 86 84 84 Respiratory Rate 18 20 20 Blood Pressure 152/77 H 127/63 Pulse Oximetry 100 99 99 Oxygen Delivery Room Air Oxygen Flow Rate 04/30/25 00:32 04/30/25 04:32 Temperature 36.7 C 36.8 C Pulse Rate 65 64 Respiratory Rate 20 18 Blood Pressure 112/60 114/68 Pulse Oximetry 97 97 Oxygen Delivery Oxygen Flow Rate Intake/Output Intake/Output: Intake & Output 04/27/25 04/28/25 04/29/25 04/30/25 23:59 23:59 23:59 23:59 Intake Total 1637.5 1048.3 Output Total 1677 670 Balance -39.5 378.3 Meds/Results Medications: Active Medications Generic Name Dose Route Start Last Admin Trade Name Freq PRN Reason Stop Dose Admin Hydrocodone Bitart/Acetaminophen 1 tab 04/29/25 14:47 04/29/25 23:24 Hydrocodone/Acetaminophen (*Crx) 5-325 Mg Tablet PO 1 tab Q6H PRN Administration Pain Rated 1-3 Hydrocodone Bitart/Acetaminophen 2 tab 04/29/25 14:47 04/30/25 06:27 Hydrocodone/Acetaminophen (*Crx) 5-325 Mg Tablet PO 2 tab Q6H PRN Administration Pain Rated 4-6 Atorvastatin Calcium 10 mg 04/29/25 18:00 04/29/25 18:18 Atorvastatin 10 Mg Tablet PO 10 mg QPM TAMMIE Administration Docusate Sodium 100 mg 04/29/25 17:00 04/29/25 18:18 Docusate Sodium 100 Mg Capsule PO 100 mg BID TAMMIE Administration Hyoscyamine 0.125 mg 04/29/25 14:47 04/30/25 05:03 Hyoscyamine Sulfate 0.125 Mg Tablet SUBLINGUAL 0.125 mg Q4H PRN Administration Bladder Spasm Lactated Ringer's 1,000 mls @ 125 mls/hr 04/29/25 14:47 04/30/25 06:17 Lr - Lactated Ringers Iv IV CONT 125 mls/hr .Q8H TAMMIE Administration Ketorolac Tromethamine 30 mg 04/29/25 12:58 Ketorolac 30 Mg/Ml Vial (*Bkc) IM ONCE PRN Pain Rated 4-6 Ketorolac Tromethamine 30 mg 04/29/25 14:47 04/30/25 05:04 Ketorolac 30 Mg/Ml Vial (*Bkc) IV PUSH 04/30/25 14:46 30 mg Q6H PRN Administration Pain Rated 4-6 Levofloxacin 500 mg 04/30/25 09:00 Levofloxacin 500 Mg Tablet PO DAILY TAMMIE Morphine Sulfate 1 mg 04/29/25 14:47 Morphine Sulfate (*Crx) 2 Mg/Ml Inj IV PUSH Q2H PRN Pain Rated 7-10 Naloxone HCl 0.1 mg 04/29/25 14:47 Naloxone Hcl 0.4 Mg/Ml Vial IV PUSH Q2M PRN Opiate Reversal Ondansetron HCl 4 mg 04/29/25 14:47 Ondansetron Inj 4 Mg/2 Ml Vial IV PUSH Q6H PRN Nausea And Vomiting Labs Labs: Laboratory Results - last 24 hr 04/29/25 04/30/25 04/30/25 14:00 05:36 07:47 Hgb 11.6 L Hct 34.5 L Sodium 134 L Potassium 4.1 Chloride 105 Carbon Dioxide 22 Anion Gap 7 BUN 12 D Creatinine 0.81 Estim Creat Clear Calc 104 Estimated GFR > 60 Glucose 110 POC Capillary Glucose 158 H 108 H Calcium 8.6
--- NOTE | 2025-04-30 08:11 | PM.DS ---
DS: Admitting Diagnosis Discharge Date 04/30/2025 Admitting Diagnosis Adenocarcinoma prostate DS: Discharge Diagnosis Discharge Diagnosis (1) Prostate cancer: Code(s): C61 - Malignant neoplasm of prostate Status: Acute DS: Summary Hospital Course Hospital Course: Patient underwent a robotic assisted nerve-sparing prostatectomy with bilateral pelvic lymph node dissection on 04/29/2025. Postoperatively he has done well. He is ambulating tolerating a diet. He will be discharged home with Rincon catheter and plan on cystogram in 1 week. Will evaluate RE output prior to his discharge this afternoon and if decreased amounts will remove the RE. Scripts sent to patient's pharmacy Time Spent with Patient Time attestation: Total time spent providing and/or coordinating discharge services: DS: Data Data Completed and Pending Pending studies at discharge: Pending at discharge 04/29/25 10:33 Surgical [PTH] Routine Surgical [PTH] Routine Surgical [PTH] Routine Surgical [PTH] Routine Labs on day of discharge: Labs from last 24 hours 04/30/25 04/30/25 04/29/25 07:47 05:36 14:00 Hgb 11.6 L Hct 34.5 L Sodium 134 L Potassium 4.1 Chloride 105 Carbon Dioxide 22 Anion Gap 7 BUN 12 D Creatinine 0.81 Estim Creat Clear Calc 104 Estimated GFR > 60 Glucose 110 POC Capillary Glucose 108 H 158 H Calcium 8.6 Discharge Plan Discharge Patient Disposition: Home Discharge Instructions: Discharged home. Instructed on use of leg bag and catheter care. Scripts sent to pharmacy. Follow-up with catheter cystogram next week and this has been scheduled Patient Language: Rwandan Stand Alone Forms: General Discharge Instructions Discharge Medications: New sulfamethoxazole-trimethoprim [Bactrim DS] 800-160 mg tablet 1 tablet PO DAILY 8 Days Qty: 6 0RF tramadol 50 mg tablet 50 mg PO Q6H PRN (Reason: pain) Qty: 20 0RF oxybutynin chloride 5 mg tablet 5 mg PO BID PRN (Reason: bladder spasms) Qty: 30 0RF Rx Instructions: Take as needed for bladder spasms Continued Ozempic 1 mg/dose (4 mg/3 mL) pen injector 1 mg SUBCUT WEEKLY Patient Comments: SUNDAYS atorvastatin 10 mg tablet 10 mg PO QPM lisinopril 20 mg tablet 20 mg PO .Q EVENING multivitamin [Daily Vitamin Formula] Tablet 1 tablet PO DAILY cholecalciferol (vitamin D3) 50 mcg (2,000 unit) capsule 2,000 unit PO DAILY milk thist seed ext-milk thist 140-500 mg capsule 250 mg PO DAILY turmeric 400 mg capsule 1,000 mg PO DAILY aspirin [Adult Low Dose Aspirin] 81 mg tablet,delayed release (DR/EC) 81 mg PO DAILY
[2025-04-30 08:32] VITALS: BP 124/65; PULSE 64; RESP 18; TEMP 36.2; O2SAT 97
[2025-04-30] MEDS: DOCUSATE SODIUM 100 MG CAPSULE PO (08:41)
--- NOTE | 2025-04-30 09:06 | WPDANESPN ---
Anes - Prog Note Post-Op Date/Time: 04/30/25 09:06 Cardiovascular status: normal Respiratory status: normal Airway patency: baseline Mental status: baseline Post-Op hydration status: normal Vital Signs: Last Vital Signs Temp 36.8 C 04/30/25 04:32 Pulse 64 04/30/25 04:32 Resp 18 04/30/25 04:32 BP 114/68 04/30/25 04:32 Pulse Ox 97 04/30/25 04:32 O2 Del Method Room Air 04/29/25 20:00 O2 Flow Rate 8 04/29/25 13:45 Pain Score (VAS): 0 I/O: Intake & Output 04/29/25 04/30/25 04/30/25 23:59 07:59 15:59 Intake Total 1387.5 1048.3 Output Total 1615 670 Balance -227.5 378.3 Laboratory Tests 04/30/25 05:36 04/30/25 05:36 04/29/25 04/30/25 04/30/25 14:00 05:36 07:47 Hgb 11.6 L Hct 34.5 L Sodium 134 L Potassium 4.1 Chloride 105 Carbon Dioxide 22 Anion Gap 7 BUN 12 D Creatinine 0.81 Estim Creat Clear Calc 104 Estimated GFR > 60 Glucose 110 POC Capillary Glucose 158 H 108 H Calcium 8.6 Post-procedural complaints: none Patient Feedback: Patient satisfied with anesthetic care.
[2025-04-30 12:32] VITALS: BP 112/60; PULSE 72; RESP 18; TEMP 36.3; O2SAT 97
[2025-04-30 14:00] VITALS: BP 112/60; PULSE 72; RESP 18; TEMP 36.3; O2SAT 97
== END 2025-04-30 15:35 | disposition home or self-care (01) ==
LOC: ANHSURGERY 05:54 → ANH3MEDSUR 14:52
PROVIDERS: PCP Nurse Practitioner Family; Visit Provider Urology
PROC: 0VT04ZZ Resection of Prostate, Percutaneous Endoscopic Approach (ICD-10-PCS; CPT 55867; principal; 2025-04-29 07:30)
DX: C61 Malignant neoplasm of prostate (principal); F17.210 Nicotine dependence, cigarettes, uncomplicated; E66.9 Obesity, unspecified; Z68.32 Body mass index [BMI] 32.0-32.9, adult; Z79.899 Other long term (current) drug therapy
CPT/HCPCS: 55866; 38571; S2900; 36415; 80048; 82948; 85014; 85018; 85730; 88305; 88309; J0690; A9270; G0416; J1100; J1171; J1885; J2003; J2250; J2405; J2704; J3010; J7030; J7120; Q9968

== ENCOUNTER 2025-05-08 11:46 | Outpatient (CLI) | payer OTHER, SELFPAY ==
--- NOTE | ~2025-05-08 | XR_ITS ---
EXAMINATION: CYSTOGRAM DATE: 05/08/2025 12:44 INDICATION: Prostate cancer post prostatectomy TECHNIQUE: Initial lithographic plate maker apprentice radiograph of the pelvis was performed. There was retrograde administration of Omnipaque 350 mixed with saline contrast into patient's existing Rincon catheter. Fluoroscopic ed ges of the pelvis were obtained. A post-void image was also performed. A total of 2 overhead radiogra phs and 27 fluoroscopic images were recorded. Fluoroscopy exposure time was 1.3 minutes. Total DAP wa s 19.509 mGycm^2 FINDINGS: There is a significant amount of soft tissue gas in the bilateral inguinal regions on the lithographic plate maker apprentice image likely secondary to the recent surgery although the amount is greater than expected. Rincon catheter in the bladder. Typical V-shaped configuration post prostatectomy at the base of the bladder. No evid ent extraluminal extravasation of contrast to suggest bladder/anastomotic leak. IMPRESSION: 1. No evident bladder leak. 2. Prominent nonspecific gas in the bilateral inguinal regions likely related to the recent prior edelmira martha but greater than typical. Patient denied fevers, pain or erythema to the region. Correlate clini gabbi. Reviewed, dictated and finalized at location A. IMPRESSION: 1. No evident bladder leak. 2. Prominent nonspecific gas in the bilateral inguinal regions likely related t o the recent prior surgery but greater than typical. Patient denied fevers, shahram n or erythema to the region. Correlate clinically.
--- OUTSIDE RECORDS SUMMARY | 2025-05-08 11:58 | XMS_ITS ---
Author Organization [facility] Address [address] [address] Care Team Providers Care Faculty Instructor Name Role Phone Ruben Cervantes Primary Care Provider Ruben Cervantes Unavailable Unavailable Encounters Encounter Location Date Provider Diagnosis [place] [address] [place] [address] 06/28/2024 Ruben Cervantes Plan Of Treatment No Information Progress Notes * JOSH SORENSONRICHMONDOB:1970 (54 yo M)Acc No.[id number]:06/28/2024 Patient: IRASEMA MCKEON Provider: Halima Cervantes MD :1970 A ge:53 Y S ex:Male Date:06/28/2024 Address:[address] [place], [place] [id number] Subjective: * Chief Complaints: * Objective: * Vitals: Assessment: Plan: * Treatment: * Billing Information: * Visit Code: * Procedure Codes: * Electronic signature of Jasbir Cervantes MD on 05/08/2025 at 11:58 AM CDT Sign off status: Pending * Provider: Halima Cervantes MD Date: Generated for Tavo merrill/Selwyn/Kelly on: 05/08/2025 11:58 AM CDT
--- OUTSIDE RECORDS SUMMARY | 2025-05-08 11:59 | XMS_ITS | Patient Health Record ---
Author Organization [facility] Address [address] [place] [address] Care Team Providers Care College Director Name Role Phone Destiny Mosqueda Primary Care Provider [phone] Jesús Cardenas Unavailable [phone] Dr. David Brown Unavailable [phone] Migration, Provider Unavailable Unavailable Allergies No Known Allergies Results Component Value Reference Range Flag Notes Uric Acid Reviewed date:07/19/2024 12:00:00 AM Interpretation: Performing Lab: Notes/Report: Uric Acid 7.3 mg/dL Thyroid Stimulating Hormone Reviewed date:07/19/2024 12:00:00 AM Interpretation: Performing Lab: Notes/Report: TSH 0.92 mcIU/mL Lipid Panel {Chol, Trig, HDL , LDL} Reviewed date:07/19/2024 12:00:00 AM Interpretation: Performing Lab: Notes/Report: Chol/HDL 5 Cholesterol Total 149 mg/dL Coronary Risk 19 % HDL 29 mg/dL LDL 49 mg/dL NON HDL CHOLESTEROL 120 mg/dL Triglycerides 356 mg/dL Hemoglobin A1c {Glycosylated } Reviewed date:07/19/2024 12:00:00 AM Interpretation: Performing Lab: Notes/Report: eAvg Glucose 117 mg/dL Hemoglobin A1c 5.7 % Comprehensive Metabolic Pane l Reviewed date:07/19/2024 12:00:00 [...] Total 6.8 g/dL Sodium Lvl 139 mmol/L CBC w/ Diff Reviewed date:07/19/2024 12:00:00 AM Interpretation: Performing Lab: Notes/Report: Baso Absolute 0.1 x10*3/mcL Basophil Auto 0.7 % Eos Absolute 0.3 x10*3/mcL Eosinophil Auto 3.2 % Hct 41.1 % Hgb 14.3 g/dL Lymph Absolute 3.1 x10*3/mcL Lymph Auto 35.1 % MCH 30.9 pg MCHC 34.9 g/dL MCV 88.5 fL Banks Absolute 0.6 x10*3/mcL Banks Auto 6.6 % MPV 7.3 fL Neutro Absolute 4.8 x10*3/mcL Neutro Auto 54.4 % Platelets 354 K/mcL RBC 4.65 x10*6/mcL RDW 13.2 % WBC 8.8 K/mcL PSA Annual Screening Reviewed date:01/29/2025 09:55:09 PM Interpretation: Performing Lab: Notes/Report: Test Performed by: [place] [address] Junior Linux Administrator: Vini Falcon DO PSA Total 6.14 0.00-4.00 ng/mL H Thyroid Stimulating Hormone Reviewed date:01/29/2025 09:55:09 PM Interpretation: Performing Lab: Notes/Report: Test Performed by: [place] [address] Junior Linux Administrator: Vini Falcon DO TSH 0.82 0.45-5.33 mcIU/mL Magnesium Reviewed date:01/29/2025 09:55:09 PM Interpretation: Performing Lab: Notes/Report: Test Performed by: [place] [address] Junior Linux Administrator: Vini Falcon DO Magnesium Lvl 1.9 1.6-2.4 mg/dL Lipid Panel {Chol, Trig, HDL , LDL} Reviewed date:01/29/2025 09:55:09 PM Interpretation: Performing Lab: Notes/Report: Test Performed by: [address] [place] [address] Junior Linux Administrator: Vini Falcon DO Cholesterol Total 125 <=199 [...] Lab: Notes/Report: Test Performed by: [place] [address] Junior Linux Administrator: Vini Falcon DO Glucose Lvl 94 74-109 [...] Lab: Notes/Report: Test Performed by: [place] [address] Junior Linux Administrator: Vini Falcon DO WBC 5.1 4.0-11.7 K/mcL RBC 4.64 4.28-5.56 x10*6/mcL Hgb 14.3 13.0-17.0 g/dL Hct 40.8 38.1-48.9 % MCV 88.0 83.4-98.1 fL MCH 30.9 27.0-34.2 pg MCHC 35.1 31.8-35.3 g/dL RDW 13.3 12.0-16.4 % Platelets 300 149-393 K/mcL MPV 7.0 7.0-11.0 fL Neutro Auto 53.0 45.3-79.0 % Lymph Auto 31.3 11.8-45.9 % Banks Auto 11.1 4.4-12.0 % Eosinophil Auto 3.5 0.0-6.3 % Basophil Auto 1.1 0.2-1.6 % Neutro Absolute 2.7 2.4-8.4 x10*3/mcL Lymph Absolute 1.6 0.8-3.7 x10*3/mcL Banks Absolute 0.6 0.3-1.1 x10*3/mcL Eos Absolute 0.2 0.0-0.5 x10*3/mcL Baso Absolute 0.1 0.0-0.1 x10*3/mcL T4 Free Reviewed date:01/29/2025 09:55:09 PM Interpretation: Performing Lab: Notes/Report: Test Performed by: [place] [address] Junior Linux Administrator: Vini Falcon DO T4 Free 0.75 0.60-1.70 ng/dL Hemoglobin A1c {Glycosylated } Reviewed date:01/29/2025 09:55:09 PM Interpretation: Performing Lab: Notes/Report: Test Performed by: [place] [address] Junior Linux Administrator: Vini Falcon DO Hemoglobin A1c 5.9 <=6.4 % Hemoglobin A1C < 5.7% = Normal 5.7-6.4% = Increased risk for future diabetes >=6.5% = Diabetes eAvg Glucose 123 <=117 mg/dL H eAG Reference Range <117 mg/dL = Normal 117-137 mg/dL = Increased Risk For Future Diabetes >137 mg/dL = Diabetes Urine Culture Reviewed date:04/09/2025 07:58:52 PM Interpretation: Performing Lab: Notes/Report: Test Performed by: [place] [id number] Junior Linux Administrator: DO Kaitlin Fraga Urine See Below Final No growth at 2 days. Urinalysis Reviewed date:04/07/2025 08:34:27 AM Interpretation:Normal Performing Lab: Notes/Report: Normal Specific [place] 1.015 pH 6.0 Glucose neg Urine Protein neg Occult Blood neg Bilirubin neg Urobilinogen,Semi-Qn normal Nitrite, Urine neg Ketones neg Leucocyte Esterase neg Reason For Referral Reason new onset elevated P SA Diagnosis 1 Elevated PSA (R97.20 ) Referral Organization [facility] Referring Provider First Name Destiny Referring Provider Last Name Panda Referring Provider Speciality Nurse Prac titioner Referred Provider Ellis Bernard Referred Provider Specialty Urology General Notes Caroline Pickard 0 12/04/2024 02:50:18 PM CDT >Referral faxed to Dr. Bernard [phone] Kaitlin 12/17/2024 02:21:31 PM CDT >please check on status of referral, Melly Caroline 02/27/2025 04:32:17 PM CDT >Pt seen on 01/06/25. Consult note in chart Clinical Notes HollandGely corriganOmaira 12/03 03:40:42 PM CDT >pt had [...] 1 Abnormal EKG (R94.31 ) Referral Organization [facility] Referring Provider First Name Destiny Referring Provider Last Name Panda Referring Provider Speciality Nurse Prac titioner Referred Provider Specialty Cardiology General Notes JfGely corriganOmaira 04/21 01:36:23 PM CDT >[facility] if able - needs to get in [place] please. has surgery on 04/29/2025 and has to be cleared with stress test d/t abnormal EKG, Caroline Pickard 04/21/2025 02:11:36 PM CDT >Referral faxed to [facility] [phone], Caroline Pickard 04/22/2025 11:08:41 AM CDT >Called and lvm with Jahaira at [facility] in [place]. Also faxed referral to [facility] ([place]) [phone], Caroline Pickard 04/22/2025 01:23:57 PM CDT >Received call from [facility] ([place]). Pt scheduled in [place] on 04/23/[address] Medellin. 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) Chondrocostal junction syndrome [Tietze] (M94.0) 02/07/20 19 Active confirmed Problem Body mass index 35.00 to 39.99 (612179137818238) Body mass index (BMI) 36.0-36.9, adult (Z68.36) 06/13/20 Active confirmed Problem Solitary pulmonary nodule (536989496) Solitary pulmonary nodule (R91.1) 03/17/20 21 Active confirmed mid right lung Problem Gastro-esophageal reflux disease without esophagitis (032466678) Gastro-esophageal reflux disease without esophagitis (K21.9) 04/16/20 24 Active confirmed Problem Mixed hyperlipidemia (228300625) Mixed hyperlipidemia (E78.2) 06/13/20 Active confirmed Problem Hyperglycemia due to type 2 diabetes mellitus (569519977516447) Type 2 diabetes mellitus with hyperglycemia (E11.65) 06/13/20 Active confirmed Problem Erectile dysfunction (disorder) (717967556) Male erectile dysfunction, unspecified (N52.9) 04/16/20 Active confirmed Vital Signs Heart Rate 62 /min 04/07/2025 Temperature 97.3 degrees Fahrenheit 04/07/2025 Respiratory Rate 18 /min 02/04/2025 Height-cm 172.72 cm 04/07/2025 Blood pressure diastolic 78 mm Hg 04/07/2025 Oximetry 98 % 04/07/2025 Weight-kg 98.88 kg 04/07/2025 Height 68.00 in 04/07/2025 Blood pressure systolic 122 mm Hg 04/07/2025 Weight 218.0 lbs 04/07/2025 BMI 33.14 kg/m2 04/07/2025 Encounters Encounter Location Date Provider Diagnosis [address] [address] 08/01/2024 Destiny Mosqueda Male erectile dysfunction, unspecified N52.9 ; Gastro-esophageal reflux disease without esophagitis K21.9 ; Essential (primary) hypertension I10 ; Pain in thoracic spine M54.6 ; Hyperlipidemia, unspecified E78.5 and Type 2 diabetes mellitus with hyperglycemia E11.[address] [address] 01/16/2025 Jesús Cardenas Insect bite (nonvenomous) of lower back and pelvis, initial encounter S30.860A and Bitten or stung by nonvenomous insect and other nonvenomous arthropods, initial encounter W57.XXXA [address] [address] 02/04/2025 Destiny Mosqueda Type 2 diabetes mellitus with hyperglycemia E11.65 ; Elevated PSA R97.20 ; Mixed hyperlipidemia E78.2 ; Gastro-esophageal reflux disease without esophagitis K21.9 ; Essential (primary) hypertension I10 ; Male erectile dysfunction, unspecified N52.9 and Tobacco use Z72.[address] [address] 04/07/2025 Dr. David Brown Dysuria R30.0 ; Acut e low back pain without sciatica, unspecified back pain laterality M54.50 ; History of prostate cancer Z85.46 and Acute non-recurrent sinusitis, unspecified location J01.[address] [address] 08/24/2024 Provider Migration [address] [address] 08/25/2024 Provider Migration [address] [address] 12/01/2024 Destiny Mosqueda [address] [address] 01/07/2025 Destiny Mosqueda Type 2 diabetes mellitus with hyperglycemia E11.[address] [address] 01/29/2025 Destiny Mosqueda Mixed hyperlipidemia E78.2 ; Type 2 diabetes mellitus with hyperglycemia E11.65 ; Gastro-esophageal reflux disease without esophagitis K21.9 and Encounter for screening for malignant neoplasm of prostate Z12.[address] [address] 04/09/2025 Destiny Mosqueda [address] [address] 04/21/2025 Destiny Mosqueda Assessments Encounter Date Diagnosis (ICD Code) Assessment Notes Treatment Notes Treatment Clinical Notes Section Notes 01/07/2025 Type 2 diabetes mellitus with hyperglycemia (ICD-10 - E11.65) 01/29/2025 Mixed hyperlipidemia (ICD-10 - E78.2) 04/07/2025 Dysuria (ICD-10 - R30.0) 02/04/2025 Elevated PSA (ICD-10 - R97.20) - [...] go to ER if concerns for retention. 04/07/2025 Acute low back pain without sciatica, unspecified back pain laterality (ICD-10 - M54.50) 02/04/2025 Type 2 diabetes mellitus with hyperglycemia [...] nonvenomous arthropods, initial encounter (ICD-10 - W57.XXXA) 01/29/2025 Type 2 diabetes mellitus with hyperglycemia (ICD-10 - E11.65) 08/01/2024 Type 2 diabetes mellitus with hyperglycemia (ICD-10 - E11.65) 08/01/2024 Hyperlipidemia, unspecified (ICD-10 - E78.5) 08/01/2024 Essential (primary) hypertension (ICD-10 - I10) 08/01/2024 Gastro-esophageal reflux disease without esophagitis (ICD-10 - K21.9) 08/01/2024 Pain in thoracic spine (ICD-10 - M54.6) 08/01/2024 Male erectile dysfunction, unspecified (ICD-10 - N52.9) 02/04/2025 Mixed hyperlipidemia (ICD-10 - E78.2) Recent trigs have gone up to 429. Rest of lipids are good, but trigs have remain elevated. Will start fenofibrate 54mg and continue atorvastatin 40mg daily 01/29/2025 Gastro-esophageal reflux disease without esophagitis (ICD-10 - K21.9) 04/07/2025 History of prostate cancer (ICD-10 - Z85.46) 04/07/2025 Acute non-recurrent sinusitis, unspecified location (ICD-10 - J01.90) 02/04/2025 Gastro-esophageal reflux disease without esophagitis (ICD-10 - K21.9) Uses prevacid PRN, works well 01/29/2025 Encounter for screening for malignant neoplasm [...] Insured Coverage Start Date Coverage End Date [id number] [place] [address] [id number] Brett Garibay Self - patient is the [...]
--- OUTSIDE RECORDS SUMMARY | 2025-05-08 12:00 | XMS_ITS | Clinical Summary ---
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) 1 Units by Does not apply route [...] Problems Problem Noted Date Diagnosed Date Diabetes ([facility]) 06/08/2023 Encounters Date Type Department Care Team Description 04/23/2025 12:20 PM CDT Office Visit [facility] [address] [place] [address] Olivia Medellin MD Follow Up (Cardiac clearance) 04/23/2025 Travel 04/23/2025 Orders Only [facility] [address] [place] [address] Olivia Medellin MD 04/22/2025 Abstract [facility] [address] [place] [address] Abstract, Doc Pccl 04/22/2025 Telephone [facility], [address] [address] Bethanie Sanchez Schedule Test 04/22/2025 Telephone [facility] [address] [place] [address] Olivia Medellin MD Referral 04/17/2025 Scan [facility] [address] [place] [address] Scanned, Doc Pccl ECG (SCAN) 04/07/2025 9:00 AM CDT - 04/07/2025 11:59 PM CDT Hospital Encounter [facility] [address] [place] [address] [place] [address] Katelyn Brown MD Discharge Disposition: Home or Self Care (Routine Discharge) 04/07/2025 Travel 02/25/2025 Scan [facility] [address] [place] [address] Scanned, Doc Pccl from Last 3 Months [...] week 06/08/2023 How often do you attend [facility] or jew services? 1 to 4 times per year 06/08/2023 Do you belong to any clubs o r organizations such as spiritism groups, unions, fraternal or athletic groups, or [...] care, and heating? Not very hard 06/08/2023 [facility] [place] [facility] Occupat ional Health - Occupational Stress [...] place to sleep or slept in a mcfp (including now)? 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 Respiratory Rate 16 04/23/2025 11:50 AM CDT [...] 5 season) 2024 05/22/2021, 05/01/2021 PHQ-2 (Physician [place]) 09/25/2024 Hemoglobin A1C 08/01/2025 01/29/2025, 11/28/2024, 06/09/2023 [...] Acute midline low back pain without sciatica LIPID PANEL Routine 01/29/2025 HEMOGLOBIN, GLYCOSYLATED Routine 01/29/2025 from Last 3 Months or Most Recently Relevant to Health Maintenance Results * ELECTROCARDIOGRAM (04/23/2025 11:56 AM CDT) 04/23/2025 11:5 6 AM CDT Narrative [facility] - 04/25/2025 4:28 PM CDT [facility] [address] [place] [address] Test Date: 2025-04-23 Pat Name: IRASEMA GARIBAY Department: 105 Room: Gender: Male 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1970 Requested By: OLIVIA MEDELLIN Order Number: [id number] Reading MD: Olivia Medellin Measurements Intervals [place] Rate: 63 P: 31 [place]: 128 QRS: 51 QRSD: 120 T: 49 QT: 387 QTc: 397 Interpretive Statements SINUS RHYTHM Procedure Note Olivia Medellin MD - 04/25/2025 [facility] [address] [place] [address] Test Date: 2025-04-23 Pat Name: IRASEMA GARIBAY Department: 105 Room: Gender: Male 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1970 Requested By: OLIVIA MEDELLIN Order Number: [id number] Reading MD: Olivia Medellin Measurements Intervals [place] Rate: 63 P: 31 [place]: 128 QRS: 51 QRSD: 120 T: 49 QT: 387 QTc: 397 Interpretive Statements SINUS RHYTHM us Olivia Medellin MD PROCEDURES-ORDERABLE NO NIGEL RGE Final Result Performing Organization Address [facility] Co de Phone Number [facility] * ECG (04/17/2025 12:00 AM CDT) 04/17/2025 us Doc Pccl Scanned SCANNING Final Result Performing Organization Address [facility] Co de Phone Number [facility] ONBASE * XR PELVIS 1 OR [...] 9:36 AM Narrative 04/07/2025 10:48 AM CDT [address] [place] [address] Examination: XR PELVIS 1 OR 2 VIEWS [...] Procedure Note Hitesh Roblero MD - 04/07/[address] [place] [address] Examination: XR PELVIS 1 OR 2 VIEWS [...] Jose Guadalupe Farah MD, 04/07/2025 9:36 AM Katelyn Brown MD GENERAL IMAGING Final Result * HEMOGLOBIN, GLYCOSYLATED (01/29/2025) Pathologist [facility] HGB A1C 5.9 % Comment:EAG 123 Narrative Resulting Agency Comment Received from pcp us Default History Genericprovider LABORATORY Final Result * LIPID PANEL (01/29/2025) CHOLESTEROL 125 TRIGLYCERIDES 429 HDL 24 LDL (CALCULATED) na CHOL/HDL RATIO 5 NON HDL CHOLESTEROL 101 Narrative Resulting Agency Comment Received from pcp us Default History Genericprovider LABORATORY Final Result from Last 3 Months or Most Recently Relevant to Health Maintenance Insurance [employer] [facility] Care Teams Intake Counselor Relationship Specialty Start Date End Date Destiny Mosqueda, [employer] [facility]- [address] [place] [address] PCP - General FAMILY PRACTICE 04/22/25 Olivia Medellin MD [address] [place] [address] [employer] Professional INTERVENTIONAL CARDIOLOGY 04/22/25 Ellis Bernard MD [address] [place] [address] Consulting Physician UROLOGY 04/23/25
--- OUTSIDE RECORDS SUMMARY | 2025-05-08 12:00 | XMS_ITS | Patient Health Record ---
Author Organization [facility] Address [address] [address] Care Team Providers Care Director University Name Role Phone Ruben Cervantes Primary Care Provider Ruben Cervantes Unavailable Unavailable Reason For Referral No Information Plan Of Treatment No Information
== END 2025-05-08 11:47 | disposition home or self-care (01) ==
PROVIDERS: PCP Nurse Practitioner Family; Visit Provider Urology
DX: C61 Malignant neoplasm of prostate (principal)
CPT/HCPCS: 51600; 74430; Q9967